=== PATIENT | female | born 1955 | race Caucasian/White ===

== ENCOUNTER 2017-03-04 01:59 | Inpatient (IN) | payer BC ==
[2017-03-04] VITALS (15 sets, daily range): BP systolic 130–205; BP diastolic 77–126
[~2017-03-04] VITALS: Ht 160 cm; Wt 89.9 kg
[~2017-03-04 01:59] MED LIST: CARV3.122 PO; CLON0.1T PO; LOSA25TA4 PO; NITR1PAT3 TD; NITR2.5C3 PO; OMEP1PAC7 PO
[2017-03-04 02:12] LABS: BASO # 0.1 x10^3/uL (0.0-0.2); BASO % 1 % (0-3); EOS % 2 % (0-3); HEMATOCRIT 40.7 % (36.0-47.0); HEMOGLOBIN 13.5 g/dL (12.0-15.5); LYMPH # 2.1 x10^3/uL (1.0-4.8); LYMPH % 17 % (24-48); MEAN CORPUSCULAR HEMOGLOBIN 29 pg (25-35); MEAN CORPUSCULAR HGB CONC 33 g/dL (31-37); MEAN CORPUSCULAR VOLUME 89 fL (79-100); MONO % 6 % (0-9); NEUT % 74 % (31-73); PLATELET COUNT 218 x10^3/uL (140-400); RED BLOOD COUNT 4.58 x10^6/uL (3.50-5.40); RED CELL DISTRIBUTION WIDTH 14.3 % (11.5-14.5); WHITE BLOOD COUNT 12.1 x10^3/uL (4.0-11.0)
[2017-03-04 02:33] LABS: CALCIUM 9.2 mg/dL (8.5-10.1); CREATININE 1.3 mg/dL (0.6-1.0); GFR 41.8; POTASSIUM 3.9 mmol/L (3.5-5.1)
[2017-03-04] MEDS ORDERED: IOHEXOL 300 MG/ML 75 ML VIAL IV ONE (02:45)
[2017-03-04] MEDS ORDERED: FUROSEMIDE 40 MG/4 ML VIAL. IVP ONE (02:45)
[2017-03-04] MEDS ORDERED: NITROGLYCERIN PREMIX 250 ML IV ONE (02:45)
[2017-03-04] MEDS ORDERED: CONTRAST GIVEN MC PRN (02:45)
[2017-03-04] MEDS ORDERED: ONDANSETRON PF 4 MG/2 ML VIAL. IV PRN (03:00)
--- NOTE | 2017-03-04 04:11 | PHYS DOC ---
Past Medical History Past Medical History: Bronchitis, CHF, Hypertension, Pneumonia Past Surgical History: Cholecystectomy Alcohol Use: None Drug Use: None Adult General Chief Complaint Chief Complaint: SHORTNESS OF BREATH HPI HPI 61-year-old female who has had worsening shortness breath for the last several days and orthopnea tonight while trying to lie flat. Patient also states she's had significant lower extremity swelling that has worsened over the last 2 days. Patient does have history of heart failure. She does states she takes diuretic. She states she has mild chest discomfort as well. Upon arrival, her room air saturation was in the low 90s and she was placed on supplementary oxygen. She normally does not require supplemental oxygen. She is afebrile and nontoxic in appearance. Review of Systems Review of Systems Constitutional: Denies fever or chills [] Eyes: Denies change in visual acuity, redness, or eye pain [] HENT: Denies nasal congestion or sore throat [] Respiratory: Denies cough, has shortness of breath [] Cardiovascular: No additional information not addressed in HPI [] GI: Denies abdominal pain, nausea, vomiting, bloody stools or diarrhea [] : Denies dysuria or hematuria [] Musculoskeletal: Denies back pain or joint pain [] Integument: Denies rash or skin lesions [] Neurologic: Denies headache, focal weakness or sensory changes [] Endocrine: Denies polyuria or polydipsia [] Current Medications Current Medications Current Medications Medications (Trade) Dose Ordered Sig/Radha Start Time Stop Time Status Last Admin Dose Admin Furosemide (Lasix) 40 mg 1X ONCE 03/04/17 02:45 03/04/17 02:46 DC 03/04/17 02:48 40 MG Info (Do NOT chart on this entry -- for MONITORING) 1 each PRN DAILY PRN 03/04/17 02:45 03/06/17 02:44 Iohexol (Omnipaque 300 Mg/ml) 75 ml 1X ONCE 03/04/17 02:45 03/04/17 02:46 DC Nitroglycerin/ Dextrose 250 ml @ 0 mls/hr 1X ONCE 03/04/17 02:45 03/04/17 02:46 DC 03/04/17 02:48 1.5 MLS/HR Allergies Allergies Allergies Coded Allergies Type Severity Reaction Last Updated Verified lisinopril Allergy Mild 08/23/16 Yes Physical Exam Physical Exam Constitutional: Well developed, well nourished, no acute distress, non-toxic appearance. [] HENT: Normocephalic, atraumatic, bilateral external ears normal, oropharynx moist, no oral exudates, nose normal. [] Eyes: PERRLA, EOMI, conjunctiva normal, no discharge. [] Neck: Normal range of motion, no tenderness, supple, no stridor. [] Cardiovascular:Heart rate tachycardic with regular rhythm, no murmur [] Lungs & Thorax: Bilateral breath sounds diminished to auscultation bilaterally [] Abdomen: Bowel sounds normal, soft, no tenderness, no masses, no pulsatile masses. [] Skin: Warm, dry, no erythema, no rash. [] Back: No tenderness, no CVA tenderness. [] Extremities: No tenderness, no cyanosis, no clubbing, ROM intact, no edema. [] Neurologic: Alert and oriented X 3, normal motor function, normal sensory function, no focal deficits noted. [] Psychologic: Affect normal, judgement normal, mood normal. [] Current Patient Data Vital Signs Vital Signs Date Time Temp Pulse Resp B/P (MAP) Pulse Ox O2 Delivery O2 Flow Rate FiO2 03/04/17 02:27 114 194/121 (145) 97 Nasal Cannula 3.0 03/04/17 02:04 100.2 30 100.2 Lab Values Laboratory Tests Test 03/04/17 02:04 White Blood Count 12.1 x10^3/uL (4.0-11.0) H Red Blood Count 4.58 x10^6/uL (3.50-5.40) Hemoglobin 13.5 g/dL (12.0-15.5) Hematocrit 40.7 % (36.0-47.0) Mean Corpuscular Volume 89 fL (79-100) Mean Corpuscular Hemoglobin 29 pg (25-35) Mean Corpuscular Hemoglobin Concent 33 g/dL (31-37) Red Cell Distribution Width 14.3 % (11.5-14.5) Platelet Count 218 x10^3/uL (140-400) Neutrophils (%) (Auto) 74 % (31-73) H Lymphocytes (%) (Auto) 17 % (24-48) L Monocytes (%) (Auto) 6 % (0-9) Eosinophils (%) (Auto) 2 % (0-3) Basophils (%) (Auto) 1 % (0-3) Neutrophils # (Auto) 9.0 x10^3uL (1.8-7.7) H Lymphocytes # (Auto) 2.1 x10^3/uL (1.0-4.8) Monocytes # (Auto) 0.8 x10^3/uL (0.0-1.1) Eosinophils # (Auto) 0.2 x10^3/uL (0.0-0.7) Basophils # (Auto) 0.1 x10^3/uL (0.0-0.2) Sodium Level 142 mmol/L (136-145) Potassium Level 3.9 mmol/L (3.5-5.1) Chloride Level 104 mmol/L (98-107) Carbon Dioxide Level 28 mmol/L (21-32) Anion Gap 10 (6-14) Blood Urea Nitrogen 18 mg/dL (7-20) Creatinine 1.3 mg/dL (0.6-1.0) H Estimated GFR (Cockcroft-Gault) 41.8 Glucose Level 127 mg/dL (70-99) H Calcium Level 9.2 mg/dL (8.5-10.1) Troponin I Quantitative 0.020 ng/mL (0.000-0.055) EX-Pwu-T-Type Natriuretic Peptide 1066 pg/mL (0-124) H Laboratory Tests 03/04/17 02:04 Laboratory Tests 03/04/17 02:04 EKG EKG EKG as interpreted by me shows a sinus tachycardia with a rate of 118 bpm. There is no acute injury pattern. This EKG does not meet STEMI criteria. Intervals are normal. Radiology/Procedures Radiology/Procedures One view of the chest as interpreted by me shows some mild vascular congestion consistent with CHF changes. Course & Med Decision Making Course & Med Decision Making Pertinent Labs and Imaging studies reviewed. (See chart for details) This 61-year-old female has a history and laboratory workup that is consistent with a CHF exacerbation. Her laboratory workup shows an elevated pro BNP of 1066. Her chest film has mild vascular changes consistent with CHF. Her blood pressure was significantly elevated upon arrival and a nitroglycerin drip was initiated. Patient was given a dose of IV furosemide as well. Patient was continuously requiring supplementary oxygen while in the department and will be admitted for likely CHF exacerbation. I will discuss the case with the hospitalist, Dr. Lew, about the need for admission. Cardiology consult was placed. Repeat troponins were also ordered for the floor. Dragon Disclaimer Dragon Disclaimer This electronic medical record was generated, in whole or in part, using a voice recognition dictation system. Departure Departure Impression: Primary Impression: CHF exacerbation Additional Impression: Dyspnea Disposition: ADMITTED INPATIENT Admitting Physician: Samaria Lew Condition: STABLE Referrals: MADAN BAXTER MD (PCP) Problem Qualifiers ERNIE ELIZABETH DO Mar 04, 2017 04:11
[2017-03-04] MEDS ORDERED: NITROGLYCERIN PREMIX 250 ML IV PRN (04:15)
--- NOTE | 2017-03-04 04:16 | ACF ---
Admission Forms Criteria HEART FAILURE: COMMON COMPLICATIONS Clinical Indications for Inpatient Care (Place 'X' for any and all applicable criteria): Ongoing inpatient care may be indicated for heart failure with ANY ONE of the following (1)(2)(3)(4)(5): [ ]I. Ongoing need for care for primary condition requiring frequent therapy adjustments because of changes in cardiac function (eg, drug dosage changes for drugs that are renally metabolized) [ ]II. New-onset heart failure [ ]III. Heart failure with decreased urine output not responsive to attempts to optimize volume status [ ]IV. Acute cardiac ischemia causing or associated with failure [X ]V. Complications of heart failure, including ANY ONE of the following: [ ]a) Pericardial effusion [ ]b) Symptomatic pleural effusion [ ]c) O2 saturation <90% or PO2 < 60 mm Hg (8.0 kPa) on room air or require baseline supplemental O2 [ ]d) Tachypnea [X ]e) Dyspnea [ ]f) Syncope [ ]g) Change in mental status [ ]h) Acute renal insufficiency that is severe (reduction of more than 50% in estimated glomerular filtration rate from baseline) or progressive reduction of more than 25% in estimated glomerular filtration rate from baseline, with creatinine continuing to rise) [ ]i) Hemodynamic instability [ ]j) Anasarca [ ]k) Clinically significant metabolic abnormalities due to heart failure (eg, new-onset metabolic acidosis) Extended stay beyond goal length of stay for primary condition may be needed until ALL of the following are present(1)(3): [ ]a) Stable and effective diuretic regimen established (or patient on stable dialysis regimen if in chronic renal failure) [ ]b) Breathing comfortably at rest [ ]c) Saturation of arterial oxygen greater than 90% or at acceptable baseline [ ]d) Pulmonary edema absent or improved [ ]e) Hemodynamic stability [ ]f) Volume status acceptable on oral medication [ ]g) Peripheral or sacral edema absent or improved [ ]h) Renal function stable and manageable at a lower level of care [ ]i) Complications (eg, pleural effusion) resolved or manageable at a lower level of care [ ]j) Patient or caregiver has received written discharge instructions or educational material addressing activity level, diet, discharge medications, follow-up appointment, weight monitoring, and what to do if symptoms worsen The original [facility] content created by [employer] has been revised. The portions of the content which have been revised are identified through the use of italic text or in bold, and [facility] has neither reviewed nor approved the modified material.All other unmodified content is copyright [facility]. Please see references footnoted in the original [facility] edition 2016 Admission Criteria Met?: Yes ADAMA FENG Mar 04, 2017 04:16
[2017-03-04] MEDS ORDERED: CARV25TA2 PO (05:05)
[2017-03-04] MEDS ORDERED: LOSA100T6 PO (05:05)
[2017-03-04] MEDS ORDERED: BUTA1CAP29 PO (05:08)
[2017-03-04] MEDS ORDERED: FURO40TA4 PO (05:08)
[2017-03-04] MEDS ORDERED: NITR0.4T6 SL (05:08)
[2017-03-04] MEDS ORDERED: SIMV20TA3 PO (05:08)
[2017-03-04] MEDS ORDERED: AMLO10TA4 PO (05:08)
[2017-03-04] MEDS: ACETAMINOPHEN 325 MG TABLET. PO PRN ×2 (07:34→21:01)
--- NOTE | 2017-03-04 07:35 | RAD ---
Indication: Chest pain. Time of exam 0222 hours. Correlation is made with prior exam from 02/18/2006. FINDINGS: The heart size is normal. The lungs are clear. No pleural effusion or pneumothorax is identified. The pulmonary vascularity is normal. IMPRESSION: No acute abnormality detected.
[2017-03-04] MEDS ORDERED: NITROGLYCERIN SUBLINGUAL 0.4 MG BOTTLE OF 25. SL PRN (11:15)
[2017-03-04] MEDS: ONDANSETRON PF 4 MG/2 ML VIAL. IV PRN ×3 (11:25→22:45)
[2017-03-04] MEDS: CARVEDILOL 12.5 MG TABLET. PO SCH ×2 (11:26→17:43)
[2017-03-04] MEDS: FUROSEMIDE 40 MG TABLET. PO SCH (11:26)
[2017-03-04] MEDS: amLODIPine BESYLATE 10 MG TABLET PO SCH (11:26)
[2017-03-04] MEDS: BUTALB/APAP/CAFEIN 50/325/40MG TABLET. PO PRN (11:27)
[2017-03-04] MEDS: LOSARTAN POTASSIUM 50 MG TABLET. PO SCH (11:27)
[2017-03-04] MEDS ORDERED: ACETAMINOPHEN/CODEINE 300/30MG TABLET. PO PRN (12:00)
[2017-03-04] MEDS ORDERED: MORPHINE SULFATE 2 MG/ML DISP.SYRIN. IV PRN (12:00)
[2017-03-04] MEDS ORDERED: LABETALOL 20 MG/4 ML DISP.SYRIN. IVP PRN (12:00)
--- NOTE | 2017-03-04 12:08 | PDOC1 ---
History and Physical Date of Admission Date of Admission DATE: 03/04/17 TIME: 12:01 Identification/Chief Complaint Chief Complaint soa, leg swelling Problems: Source Source: Caregiver, Chart review, Patient History of Present Illness History of Present Illness 61 y.o obese AA female, hx CHF x 6 yrs, cards is Dr. Amanda, admitted overnight bec of SOA, leg swelling, she thinks she is accumulating fluid and gained some weight, She claims compliance to her home meds including lasix at home, claims watches salt intake, Notes some chest heaviness actually now, not pain, no radiation, at rest, no identifiable alleviating or precipitating factor. SHe is fanning herself, speaks in a low voice, nauseus with bucket at bedside, having ehadache bec has been on nitro gtt started by ER for CHF/flash pulm edema, CXR actually is read as neg, BNP elevated 1066. Crea 1.3 TYlenol did not help headache, BP still on high side despite nitro gtt Past Medical History Cardiovascular: CHF, HTN, Hyperlipidemia CENTRAL NERVOUS SYSTEM: Migraine Past Surgical History Past Surgical History: Cholecystectomy Family History Family History: Heart Disease, High Cholestrol, Hypertension Social History Smoke: No ALCOHOL: none Drugs: None Current Medications Current Medications Current Medications Furosemide (Lasix) 40 mg 1X ONCE IVP Last administered on 03/04/17 02:48; Start 03/04/17 at 02:45; Stop 03/04/17 at 02:46; Status DC Nitroglycerin/ Dextrose 250 ml @ 0 mls/hr 1X ONCE IV Last administered on 02:48; Start 03/04/17 at 02:45; Stop 03/04/17 at 02:46; Status DC Iohexol (Omnipaque 300 Mg/ml) 75 ml 1X ONCE IV ; Start 03/04/17 at 02:45; Stop 03/04/17 at 02:46; Status DC Info (Do NOT chart on this entry -- for MONITORING) 1 each PRN DAILY PRN MC SEE COMMENTS; Start 03/04/17 at 02:45; Stop 03/06/17 at 02:44 Ondansetron HCl (Zofran) 4 mg PRN Q8HRS PRN IV NAUSEA/VOMITING Last administered on 03/04/17 04:17; Start 03/04/17 at 03:00; Stop 03/04/17 at 11:09; Status DC Acetaminophen (Tylenol) 650 mg PRN Q4HRS PRN PO FEVER Last administered on 07:34; Start 03/04/17 at 03:00; Stop 03/05/17 at 02:59 Nitroglycerin/ Dextrose 250 ml @ 0 mls/hr CONT PRN IV SEE I/O RECORD; Start 03/04/17 at 04:15 Ondansetron HCl (Zofran) 4 mg PRN Q6HRS PRN IV NAUSEA/VOMITING Last administered on 03/04/17 11:25; Start 03/04/17 at 11:08; Stop 03/05/17 at 11:07 Amlodipine Besylate (Norvasc) 10 mg DAILY PO Last administered on 03/04/17 11: 26; Start 03/04/17 at 12:00 Furosemide (Lasix) 40 mg DAILY PO Last administered on 03/04/17 11:26; Start at 12:00 Nitroglycerin (Nitrostat) 0.4 mg PRN Q5MIN PRN SL CHEST PAIN; Start 03/04/17 at 11:15 Simvastatin (Zocor) 20 mg QHS PO ; Start 03/04/17 at 21:00 Acetaminophen/ Butalbital/ Caffeine (Fioricet) 1 tab PRN DAILY PRN PO MIGRAINE HEADACHE Last administered on 03/04/17 11:27; Start 03/04/17 at 11:15 Carvedilol (Coreg) 25 mg BIDWMEALS PO Last administered on 03/04/17 11:26; Start 03/04/17 at 12:00 Losartan Potassium (Cozaar) 100 mg DAILY PO Last administered on 03/04/17 11:27 ; Start 03/04/17 at 12:00 Active Scripts Active Reported NITROGLYCERIN SubLingual (Nitroglycerin) 0.4 Mg Tab.subl 0.4 Mg SL PRN Q5MIN PRN Norvasc (Amlodipine Besylate) 10 Mg Tablet 10 Mg PO DAILY Simvastatin 20 Mg Tablet 1 Tab PO QHS Fioricet 50-300-40 Mg Capsule (Butalb/Acetaminophen/Caffeine) 1 Each Capsule 1 Each PO DAILY PRN Furosemide 40 Mg Tablet 1 Tab PO DAILY Losartan Potassium 100 Mg Tablet 100 Mg PO DAILY Carvedilol 25 Mg Tablet 1 Tab PO DAILY Allergies Allergies: Coded Allergies: lisinopril (Verified Allergy, Mild, 08/23/16) ROS General: No: Chills, Night Sweats, Fatigue, Malaise, Appetite, Other PSYCHOLOGICAL ROS: No: Anxiety, Behavioral Disorder, Concentration difficultie , Decreased libido, Depression, Disorientation, Hallucinations, Hostility, Irritablity, Memory difficulties, Mood Swings, Obsessive thoughts, Physical abuse, Sexual abuse, Sleep disturbances, Suicidal ideation, Other Eyes: No Blurry vision, No Decreased vision, No Double vision, No Dry eyes, No Excessive tearing, No Eye Pain, No Itchy Eyes, No Loss of vision, No Photophobia , No Scotomata, No Uses contacts, No Uses glasses, No Other HEENT: No: Heacaches, Visual Changes, Hearing change, Nasal congestion, Nasal discharge, Oral lesions, Sinus pain, Sore Throat, Epistaxis, Sneezing, Snoring, Tinnitus, Vertigo, Vocal changes, Other ALLERGY AND IMMUNOLOGY: No: Hives, Insect Bite Sensitivity, Itchy/Watery Eyes, Nasal Congestion, Post Nasal Drip, Seasonal Allergies, Other ENDOCRINE: No: Breast Changes, Galactorrhea, Hair Pattern Changes, Hot Flashes , Malaise/lethargy, Mood Swings, Palpitations, Polydipsia/polyuria, Skin Changes , Temperature Intolerance, Unexpected Weight Changes, Other Breast: No New/Changing Breast Lumps, No Nipple changes, No Nipple discharge, No Other Respiratory: YES: Shortness of breath, SOB with excertion Cardiovascular: yes Chest Pain Gastrointestinal: Yes Nausea, Yes Abdominal Pain Genitourinary: No Dysuria, No Frequency, No Incontinence, No Hematuria, No Retention, No Discharge, No Urgency, No Pain, No Flank Pain, No Other, No , No , No , No , No , No , No Neurological: Yes Headaches Skin: No Dry Skin, No Eczema, No Hair Changes, No Lumps, No Mole Changes, No Mottling, No Nail Changes, No Pruritus, No Rash, No Skin Lesion Changes, No Other, No Acne Physical Exam General: Alert, Oriented X3, Cooperative, No acute distress, Other (looks uncomfortable from headachem, dry heaving) HEENT: Atraumatic, PERRLA, EOMI, Mucous membr. moist/pink Lungs: Clear to auscultation Heart: S1S2, RRR Cardiovascular: S1, S2 Breasts: No suspicious masses Abdomen: Normal bowel sounds, Soft, No tenderness, No hepatosplenomegaly, No masses Rectal Exam: not examined PELVIC: Nml ext genitalia Extremities: No clubbing, No cyanosis, No edema, Normal pulses, No tenderness/ swelling Skin: No rashes, No breakdown, No significant lesion Neuro: Normal gait, Normal speech, Strength at 5/5 X4 ext, Normal tone, Sensation intact, Cranial nerves 3-12 NL, Reflexes 2+ Psych/Mental Status: Mental status NL, Mood NL Vitals Vitals Vital Signs Date Time Temp Pulse Resp B/P (MAP) Pulse Ox O2 Delivery O2 Flow Rate FiO2 03/04/17 11:27 90 165/101 03/04/17 10:54 98.6 20 98 Nasal Cannula 2.0 98.6 Labs Labs Laboratory Tests Test 03/04/17 02:04 03/04/17 08:50 White Blood Count 12.1 x10^3/uL (4.0-11.0) Red Blood Count 4.58 x10^6/uL (3.50-5.40) Hemoglobin 13.5 g/dL (12.0-15.5) Hematocrit 40.7 % (36.0-47.0) Mean Corpuscular Volume 89 fL (79-100) Mean Corpuscular Hemoglobin 29 pg (25-35) Mean Corpuscular Hemoglobin Concent 33 g/dL (31-37) Red Cell Distribution Width 14.3 % (11.5-14.5) Platelet Count 218 x10^3/uL (140-400) Neutrophils (%) (Auto) 74 % (31-73) Lymphocytes (%) (Auto) 17 % (24-48) Monocytes (%) (Auto) 6 % (0-9) Eosinophils (%) (Auto) 2 % (0-3) Basophils (%) (Auto) 1 % (0-3) Neutrophils # (Auto) 9.0 x10^3uL (1.8-7.7) Lymphocytes # (Auto) 2.1 x10^3/uL (1.0-4.8) Monocytes # (Auto) 0.8 x10^3/uL (0.0-1.1) Eosinophils # (Auto) 0.2 x10^3/uL (0.0-0.7) Basophils # (Auto) 0.1 x10^3/uL (0.0-0.2) Sodium Level 142 mmol/L (136-145) Potassium Level 3.9 mmol/L (3.5-5.1) Chloride Level 104 mmol/L (98-107) Carbon Dioxide Level 28 mmol/L (21-32) Anion Gap 10 (6-14) Blood Urea Nitrogen 18 mg/dL (7-20) Creatinine 1.3 mg/dL (0.6-1.0) Estimated GFR (Cockcroft-Gault) 41.8 Glucose Level 127 mg/dL (70-99) Calcium Level 9.2 mg/dL (8.5-10.1) Troponin I Quantitative 0.020 ng/mL (0.000-0.055) 0.044 ng/mL (0.000-0.055) VD-Asz-I-Type Natriuretic Peptide 1066 pg/mL (0-124) Laboratory Tests Test 03/04/17 02:04 03/04/17 08:50 White Blood Count 12.1 x10^3/uL (4.0-11.0) Red Blood Count 4.58 x10^6/uL (3.50-5.40) Hemoglobin 13.5 g/dL (12.0-15.5) Hematocrit 40.7 % (36.0-47.0) Mean Corpuscular Volume 89 fL (79-100) Mean Corpuscular Hemoglobin 29 pg (25-35) Mean Corpuscular Hemoglobin Concent 33 g/dL (31-37) Red Cell Distribution Width 14.3 % (11.5-14.5) Platelet Count 218 x10^3/uL (140-400) Neutrophils (%) (Auto) 74 % (31-73) Lymphocytes (%) (Auto) 17 % (24-48) Monocytes (%) (Auto) 6 % (0-9) Eosinophils (%) (Auto) 2 % (0-3) Basophils (%) (Auto) 1 % (0-3) Neutrophils # (Auto) 9.0 x10^3uL (1.8-7.7) Lymphocytes # (Auto) 2.1 x10^3/uL (1.0-4.8) Monocytes # (Auto) 0.8 x10^3/uL (0.0-1.1) Eosinophils # (Auto) 0.2 x10^3/uL (0.0-0.7) Basophils # (Auto) 0.1 x10^3/uL (0.0-0.2) Sodium Level 142 mmol/L (136-145) Potassium Level 3.9 mmol/L (3.5-5.1) Chloride Level 104 mmol/L (98-107) Carbon Dioxide Level 28 mmol/L (21-32) Anion Gap 10 (6-14) Blood Urea Nitrogen 18 mg/dL (7-20) Creatinine 1.3 mg/dL (0.6-1.0) Estimated GFR (Cockcroft-Gault) 41.8 Glucose Level 127 mg/dL (70-99) Calcium Level 9.2 mg/dL (8.5-10.1) Troponin I Quantitative 0.020 ng/mL (0.000-0.055) 0.044 ng/mL (0.000-0.055) HV-Rcg-X-Type Natriuretic Peptide 1066 pg/mL (0-124) VTE Prophylaxis Ordered VTE Prophylaxis Devices: Yes VTE Pharmacological Prophylaxi: Yes Assessment/Plan Assessment/Plan 1. CHF (unknown kind) on admit, HTN urgency POA started on nitro gtt 2. Headaches from nitro gtt and hTN urgency 3. HTN uncontrolled, accelerated 4. Obesity 5. Hx migraines 6. Dyslipidmeia 7. MIld PCM 8. reactive leukocytosis 9,.IZZY 10. CHest heaviness] PLAN: Admit CVC , 2 MN CXR is not impressive, legs not that swollen, no JVD, hopefully able tog et off nitro gtt soon CArds consulted I am concerned for chest heaviness CYcle CE LAbetolol rpn IVP for HTN - still on high side TYlenol # 3 MIgarine headache home med resumed Hold nephrotoxic agents and NSAIDs (crea 1,4) PT/OT when feeling better Dw RN and pt and at bedside DVT prophy CARdiac diet YOEL CHAVEZ MD Mar 04, 2017 12:08
[2017-03-04] MEDS: ENOXAPARIN 40 MG/0.4 ML SYRINGE. SQ SCH (12:27)
--- NOTE | 2017-03-04 12:33 | EKG ---
[facility] [address] [place] [address] Test Date: 2017-03-04 Test Time: 02:01:15 Pat Name: ANUEL MO Department: Room: 210 1 Gender: F [employer] Registrar: : [id number] Requested By: ERNIE ELIZABETH Order Number: [id number] Reading MD: Jason Vincent Measurements Intervals Moyers Rate: 118 P: 52 UT: 92 QRS: 12 QRSD: 108 T: 13 QT: 324 QTc: 456 Interpretive Statements SINUS TACHYCARDIA QRS(T) CONTOUR ABNORMALITY CANNOT RULE OUT ANTEROLATERAL MYOCARDIAL DAMAGE RI6.01 Unconfirmed report No previous ECG available for comparison Electronically Signed On 03-08-2017 9:36:59 CDT by Jason Vincent
--- NOTE | 2017-03-04 13:08 | PDOC ---
Provider Note Provider Note I had seen this patient in the office in August 2016. MPI wasn't normal at that time. She now comes in with symptoms suggestive of flash pulmonary edema. She is asymptomatic at the present time. Will complete consultation later this evening after reviewing charts in the office. Thank you for asking me to see her. KENNETH POSEY MD Mar 04, 2017 13:08
[2017-03-04] MEDS: hydrALAZINE 25 MG TABLET PO SCH (17:43)
[2017-03-04] MEDS: SIMVASTATIN 20 MG TABLET PO SCH (21:00)
[2017-03-05] VITALS (10 sets, daily range): BP systolic 119–163; BP diastolic 53–95
[2017-03-05] MEDS: hydrALAZINE 25 MG TABLET PO SCH (06:17)
[2017-03-05] MEDS: CARVEDILOL 12.5 MG TABLET. PO SCH ×2 (07:39→17:29)
[2017-03-05] MEDS: LOSARTAN POTASSIUM 50 MG TABLET. PO SCH (07:39)
[2017-03-05] MEDS: FUROSEMIDE 40 MG TABLET. PO SCH (07:40)
[2017-03-05] MEDS: amLODIPine BESYLATE 10 MG TABLET PO SCH (07:40)
--- NOTE | 2017-03-05 10:45 | RAD ---
Indication: Bilateral lower extremity edema. Grayscale, color-flow and duplex Doppler evaluation of bilateral lower extremity deep venous systems was performed. FINDINGS: There is no evidence of right or left lower extremity DVT. Both lower extremity deep venous systems showed normal compressibility with normal response to augmentation and Valsalva. No fluid collection or mass is detected. IMPRESSION: No evidence of right or left lower extremity DVT.
[2017-03-05] MEDS: BUTALB/APAP/CAFEIN 50/325/40MG TABLET. PO PRN (11:03)
--- NOTE | 2017-03-05 11:12 | CARD ---
APPROVED REPORT EXAM: Two-dimensional and M-mode echocardiogram with Doppler and color Doppler. Other Information Quality : GoodHR: 94bpm Rhythm : NSR INDICATION SOB RISK FACTORS Obesity 2D DIMENSIONS RVDd3.0 (2.9-3.5cm)Left Atrium(2D)5.1 (1.6-4.0cm) IVSd1.0 (0.7-1.1cm)Aortic Root(2D)2.5 (2.0-3.7cm) LVDd5.8 (3.9-5.9cm)LVOT Diameter2.2 (1.8-2.4cm) PWd1.0 (0.7-1.1cm)LVDs4.2 (2.5-4.0cm) FS (%) 28.1 %SV88.5 ml LVEF(%)53.7 (>50%) Aortic Valve AoV Peak Tate.124.9cm/sAoV VTI22.4cm AO Peak GR.6.2mmHgLVOT Peak Tate.101.7cm/s AO Mean GR.4mmHgAVA (VMAX)3.00cm2 Mitral Valve MV E Hhxubwpg13.3cm/sMV E Peak Gr.6mmHg MV DECEL [id number] A Tpdqgxpe945.8cm/s MV E Mean Gr.3mmHgE/A Ratio0.8 MV A Yvtyoyqo24am Pulmonary Valve PV Peak Lndaqdtm437.8cm/s Pulmonary Vein S1 Haczdlev71.9cm/sD2 Xrohxerg22.4cm/s PVa [id number] LEFT VENTRICLE The Left Ventricle is mildly dilated. There is normal left ventricular wall thickness. The left ventr icular systolic function is normal. The Ejection Fraction is 55-60%. There is normal LV segmental wal l motion. Transmitral Doppler flow pattern is Grade I-abnormal relaxation pattern. RIGHT VENTRICLE The right ventricle is normal size. There is normal right ventricular wall thickness. The right ventr icular systolic function is normal. ATRIA The left atrium is mildly dilated. The right atrium size is normal. The interatrial septum is intact with no evidence for an atrial septal defect or patent foramen ovale as noted on 2-D or Doppler imagi ng. AORTIC VALVE The aortic valve is trileaflet. Doppler and Color Flow revealed no significant aortic regurgitation. There is no significant aortic valvular stenosis. MITRAL VALVE The mitral valve leaflets are thickened. There is no mitral valve stenosis. Doppler and Color Flow re vealed mild mitral regurgitation. TRICUSPID VALVE Doppler and Color Flow revealed no tricuspid valve regurgitation noted. Unable to determine pulmonary artery pressure at exam time. PULMONIC VALVE Doppler and Color Flow revealed trace pulmonic valvular regurgitation. There is no pulmonic valvular stenosis. GREAT VESSELS The aortic root is normal in size. The ascending aorta is mildly dilated. The pulmonary artery is nor mal. The IVC is normal in size and collapses >50% with inspiration. PERICARDIAL EFFUSION There is no evidence of significant pericardial effusion. Critical Notification Critical Value: No <Conclusion> The Left Ventricle is mildly dilated. There is normal left ventricular wall thickness. The left ventricular systolic function is normal. The Ejection Fraction is 55-60% There is a Grade I diastolic dysfunction There is no evidence of significant pericardial effusion. There is no mitral stenosis and a mild mitral regurgitation. The left atrium is enlarged to 5.1 cms. The aortic valve is tricuspid. There is no aortic stenosis or regurgitation The right ventricle is of a normal size with normal systolic function There is no sufficient TR to be able to determine the RVSP The pulmonic valve is normal.
[2017-03-05 12:13] LABS: BASO % 0 % (0-3); EOS % 0 % (0-3); HEMATOCRIT 37.9 % (36.0-47.0); HEMOGLOBIN 12.5 g/dL (12.0-15.5); LYMPH # 1.2 x10^3/uL (1.0-4.8); LYMPH % 13 % (24-48); MEAN CORPUSCULAR HEMOGLOBIN 29 pg (25-35); MEAN CORPUSCULAR HGB CONC 33 g/dL (31-37); MEAN CORPUSCULAR VOLUME 89 fL (79-100); MONO % 9 % (0-9); NEUT % 78 % (31-73); PLATELET COUNT 187 x10^3/uL (140-400); RED BLOOD COUNT 4.25 x10^6/uL (3.50-5.40); RED CELL DISTRIBUTION WIDTH 14.4 % (11.5-14.5)
[2017-03-05] MEDS: ENOXAPARIN 40 MG/0.4 ML SYRINGE. SQ SCH (12:17)
--- NOTE | 2017-03-05 12:23 | PDOC ---
PROGRESS NOTES Chief Complaint Chief Complaint 1. CHF (unknown kind) on admit, HTN urgency POA started on nitro gtt 2. Headaches from nitro gtt and hTN urgency 3. HTN uncontrolled, accelerated 4. Obesity 5. Hx migraines 6. Dyslipidmeia 7. MIld PCM 8. reactive leukocytosis 9,.IZZY 10. CHest heaviness History of Present Illness History of Present Illness off nitro gtt just today [facility] has adjusted some bP meds, BP better SOme 5./10 headache, better Known migraine PLAN: PT/OT Follow cards recs REcheck CBC BMP, WBC was 12 - no real reason Dw RN Vitals Vitals Vital Signs Date Time Temp Pulse Resp B/P (MAP) Pulse Ox O2 Delivery O2 Flow Rate FiO2 03/05/17 11:12 98.7 90 18 154/80 (104) 100 Nasal Cannula 2.0 98.7 Physical Exam General: Alert, Oriented X3, Cooperative, No acute distress, Other (looks uncomfortable from headachem, dry heaving) Heart: Regular rate, Normal S1, Normal S2 Lungs: Clear Abdomen: Normal bowel sounds, Soft, No tenderness, No hepatosplenomegaly, No masses Extremities: No clubbing, No cyanosis, No edema, Normal pulses, No tenderness/ swelling Skin: No rashes, No breakdown, No significant lesion Labs LABS Laboratory Tests Test 03/04/17 14:45 03/05/17 11:24 Troponin I Quantitative 0.037 ng/mL (0.000-0.055) White Blood Count 10.0 x10^3/uL (4.0-11.0) Red Blood Count 4.25 x10^6/uL (3.50-5.40) Hemoglobin 12.5 g/dL (12.0-15.5) Hematocrit 37.9 % (36.0-47.0) Mean Corpuscular Volume 89 fL (79-100) Mean Corpuscular Hemoglobin 29 pg (25-35) Mean Corpuscular Hemoglobin Concent 33 g/dL (31-37) Red Cell Distribution Width 14.4 % (11.5-14.5) Platelet Count 187 x10^3/uL (140-400) Neutrophils (%) (Auto) 78 % (31-73) Lymphocytes (%) (Auto) 13 % (24-48) Monocytes (%) (Auto) 9 % (0-9) Eosinophils (%) (Auto) 0 % (0-3) Basophils (%) (Auto) 0 % (0-3) Neutrophils # (Auto) 7.7 x10^3uL (1.8-7.7) Lymphocytes # (Auto) 1.2 x10^3/uL (1.0-4.8) Monocytes # (Auto) 0.9 x10^3/uL (0.0-1.1) Eosinophils # (Auto) 0.0 x10^3/uL (0.0-0.7) Basophils # (Auto) 0.0 x10^3/uL (0.0-0.2) Review of Systems Review of Systems mild headaches, no soa, CP, abd pain, n,.v.d Comment Review of Relevant I have reviewed the following items wilbert (where applicable) has been applied. Labs Laboratory Tests Test 03/04/17 02:04 03/04/17 08:50 03/04/17 14:45 03/05/17 11:24 White Blood Count 12.1 x10^3/uL (4.0-11.0) 10.0 x10^3/uL (4.0-11.0) Red Blood Count 4.58 x10^6/uL (3.50-5.40) 4.25 x10^6/uL (3.50-5.40) Hemoglobin 13.5 g/dL (12.0-15.5) 12.5 g/dL (12.0-15.5) Hematocrit 40.7 % (36.0-47.0) 37.9 % (36.0-47.0) Mean Corpuscular Volume 89 fL (79-100) 89 fL (79-100) Mean Corpuscular Hemoglobin 29 pg (25-35) 29 pg (25-35) Mean Corpuscular Hemoglobin Concent 33 g/dL (31-37) 33 g/dL (31-37) Red Cell Distribution Width 14.3 % (11.5-14.5) 14.4 % (11.5-14.5) Platelet Count 218 x10^3/uL (140-400) 187 x10^3/uL (140-400) Neutrophils (%) (Auto) 74 % (31-73) 78 % (31-73) Lymphocytes (%) (Auto) 17 % (24-48) 13 % (24-48) Monocytes (%) (Auto) 6 % (0-9) 9 % (0-9) Eosinophils (%) (Auto) 2 % (0-3) 0 % (0-3) Basophils (%) (Auto) 1 % (0-3) 0 % (0-3) Neutrophils # (Auto) 9.0 x10^3uL (1.8-7.7) 7.7 x10^3uL (1.8-7.7) Lymphocytes # (Auto) 2.1 x10^3/uL (1.0-4.8) 1.2 x10^3/uL (1.0-4.8) Monocytes # (Auto) 0.8 x10^3/uL (0.0-1.1) 0.9 x10^3/uL (0.0-1.1) Eosinophils # (Auto) 0.2 x10^3/uL (0.0-0.7) 0.0 x10^3/uL (0.0-0.7) Basophils # (Auto) 0.1 x10^3/uL (0.0-0.2) 0.0 x10^3/uL (0.0-0.2) Sodium Level 142 mmol/L (136-145) Potassium Level 3.9 mmol/L (3.5-5.1) Chloride Level 104 mmol/L (98-107) Carbon Dioxide Level 28 mmol/L (21-32) Anion Gap 10 (6-14) Blood Urea Nitrogen 18 mg/dL (7-20) Creatinine 1.3 mg/dL (0.6-1.0) Estimated GFR (Cockcroft-Gault) 41.8 Glucose Level 127 mg/dL (70-99) Calcium Level 9.2 mg/dL (8.5-10.1) Troponin I Quantitative 0.020 ng/mL (0.000-0.055) 0.044 ng/mL (0.000-0.055) 0.037 ng/mL (0.000-0.055) OC-Dea-W-Type Natriuretic Peptide 1066 pg/mL (0-124) Laboratory Tests Test 03/04/17 14:45 03/05/17 11:24 Troponin I Quantitative 0.037 ng/mL (0.000-0.055) White Blood Count 10.0 x10^3/uL (4.0-11.0) Red Blood Count 4.25 x10^6/uL (3.50-5.40) Hemoglobin 12.5 g/dL (12.0-15.5) Hematocrit 37.9 % (36.0-47.0) Mean Corpuscular Volume 89 fL (79-100) Mean Corpuscular Hemoglobin 29 pg (25-35) Mean Corpuscular Hemoglobin Concent 33 g/dL (31-37) Red Cell Distribution Width 14.4 % (11.5-14.5) Platelet Count 187 x10^3/uL (140-400) Neutrophils (%) (Auto) 78 % (31-73) Lymphocytes (%) (Auto) 13 % (24-48) Monocytes (%) (Auto) 9 % (0-9) Eosinophils (%) (Auto) 0 % (0-3) Basophils (%) (Auto) 0 % (0-3) Neutrophils # (Auto) 7.7 x10^3uL (1.8-7.7) Lymphocytes # (Auto) 1.2 x10^3/uL (1.0-4.8) Monocytes # (Auto) 0.9 x10^3/uL (0.0-1.1) Eosinophils # (Auto) 0.0 x10^3/uL (0.0-0.7) Basophils # (Auto) 0.0 x10^3/uL (0.0-0.2) Medications Current Medications Furosemide (Lasix) 40 mg 1X ONCE IVP Last administered on 03/04/17 02:48; Start 03/04/17 at 02:45; Stop 03/04/17 at 02:46; Status DC Nitroglycerin/ Dextrose 250 ml @ 0 mls/hr 1X ONCE IV Last administered on 02:48; Start 03/04/17 at 02:45; Stop 03/04/17 at 02:46; Status DC Iohexol (Omnipaque 300 Mg/ml) 75 ml 1X ONCE IV ; Start 03/04/17 at 02:45; Stop 03/04/17 at 02:46; Status DC Info (Do NOT chart on this entry -- for MONITORING) 1 each PRN DAILY PRN MC SEE COMMENTS; Start 03/04/17 at 02:45; Stop 03/06/17 at 02:44 Ondansetron HCl (Zofran) 4 mg PRN Q8HRS PRN IV NAUSEA/VOMITING Last administered on 03/04/17 04:17; Start 03/04/17 at 03:00; Stop 03/04/17 at 11:09; Status DC Acetaminophen (Tylenol) 650 mg PRN Q4HRS PRN PO FEVER Last administered on 21:01; Start 03/04/17 at 03:00; Stop 03/05/17 at 02:59; Status DC Nitroglycerin/ Dextrose 250 ml @ 0 mls/hr CONT PRN IV SEE I/O RECORD; Start 03/04/17 at 04:15 Ondansetron HCl (Zofran) 4 mg PRN Q6HRS PRN IV NAUSEA/VOMITING Last administered on 03/04/17 22:45; Start 03/04/17 at 11:08; Stop 03/05/17 at 11:07; Status DC Amlodipine Besylate (Norvasc) 10 mg DAILY PO Last administered on 03/05/17 07: 40; Start 03/04/17 at 12:00 Furosemide (Lasix) 40 mg DAILY PO Last administered on 03/05/17 07:40; Start at 12:00 Nitroglycerin (Nitrostat) 0.4 mg PRN Q5MIN PRN SL CHEST PAIN; Start 03/04/17 at 11:15 Simvastatin (Zocor) 20 mg QHS PO Last administered on 03/04/17 21:00; Start 03/04/17 at 21:00 Acetaminophen/ Butalbital/ Caffeine (Fioricet) 1 tab PRN DAILY PRN PO MIGRAINE HEADACHE Last administered on 03/05/17 11:03; Start 03/04/17 at 11:15 Carvedilol (Coreg) 25 mg BIDWMEALS PO Last administered on 03/05/17 07:39; Start 03/04/17 at 12:00 Losartan Potassium (Cozaar) 100 mg DAILY PO Last administered on 03/05/17 07:39 ; Start 03/04/17 at 12:00 Labetalol HCl (Normodyne) 10 mg PRN Q2HR PRN IVP HYPERTENSION, SEE COMMENTS; Start 03/04/17 at 12:00 Acetaminophen/ Codeine Phosphate (Tylenol #3) 1 tab PRN Q6HRS PRN PO PAIN; Start 03/04/17 at 12:00 Morphine Sulfate 2 mg PRN Q2HR PRN IV PAIN Last administered on 03/04/17 22:48 ; Start 03/04/17 at 12:00 Enoxaparin Sodium (Lovenox 40mg Syringe) 40 mg Q24H SQ Last administered on 03/05 12:17; Start 03/04/17 at 13:00 Hydralazine HCl (Apresoline) 25 mg [id number] PO Last administered on 03/05/17 06:17 ; Start 03/04/17 at 18:00 Active Scripts Active Reported NITROGLYCERIN SubLingual (Nitroglycerin) 0.4 Mg Tab.subl 0.4 Mg SL PRN Q5MIN PRN Norvasc (Amlodipine Besylate) 10 Mg Tablet 10 Mg PO DAILY Simvastatin 20 Mg Tablet 1 Tab PO QHS Fioricet 50-300-40 Mg Capsule (Butalb/Acetaminophen/Caffeine) 1 Each Capsule 1 Each PO DAILY PRN Furosemide 40 Mg Tablet 1 Tab PO DAILY Losartan Potassium 100 Mg Tablet 100 Mg PO DAILY Carvedilol 25 Mg Tablet 1 Tab PO DAILY Vitals/I & O Vital Sign - Last 24 Hours 03/04/17 03/04/17 03/04/17 03/04/17 15:23 17:43 17:43 19:00 Temp 98.0 98.4 98.0 98.4 Pulse 80 80 80 81 Resp 18 18 B/P (MAP) 152/90 (110) 152/90 152/90 147/81 (103) Pulse Ox 98 96 O2 Delivery Nasal Cannula Nasal Cannula O2 Flow Rate 2.0 2.0 03/04/17 03/04/17 03/04/17 03/04/17 19:45 19:54 20:45 21:45 Pulse 76 76 80 B/P (MAP) 138/77 (97) 140/80 (100) 138/78 (98) O2 Delivery Nasal Cannula O2 Flow Rate 2.0 03/04/17 03/04/17 03/04/17 03/04/17 22:45 22:48 23:00 23:19 Temp 98.0 98.0 Pulse 82 77 Resp 18 B/P (MAP) 140/82 (101) 130/79 (96) Pulse Ox 95 O2 Delivery Nasal Cannula Nasal Cannula Nasal Cannula O2 Flow Rate 2.0 2.0 2.0 03/04/17 03/05/17 03/05/17 03/05/17 23:45 00:45 02:00 03:00 Temp 97.6 97.6 Pulse 72 80 79 81 Resp 18 B/P (MAP) 130/77 (94) 121/53 (75) 119/68 (85) 119/68 (85) Pulse Ox 98 O2 Delivery Nasal Cannula O2 Flow Rate 2.0 03/05/17 03/05/17 03/05/17 03/05/17 03:00 04:00 05:07 06:00 Pulse 70 76 75 82 B/P (MAP) 129/81 (97) 135/79 (97) 144/77 (99) 163/95 (117) 03/05/17 03/05/17 03/05/17 03/05/17 06:17 07:39 07:39 07:40 Pulse 82 93 98 93 B/P (MAP) 163/95 155/86 155/86 155/86 03/05/17 03/05/17 08:11 11:12 Temp 98.7 98.7 Pulse 90 Resp 18 B/P (MAP) 154/80 (104) Pulse Ox 100 O2 Delivery Nasal Cannula Nasal Cannula O2 Flow Rate 2.0 2.0 Intake and Output 03/04/17 03/04/17 03/05/17 15:00 23:00 07:00 Intake Total 200 ml 229.5 ml Output Total 400 ml Balance -200 ml 229.5 ml YOEL CHAVEZ MD Mar 05, 2017 12:23
[2017-03-05 12:25] LABS: CALCIUM 8.5 mg/dL (8.5-10.1); CREATININE 1.2 mg/dL (0.6-1.0); GFR 45.8; MAGNESIUM 2.1 mg/dL (1.8-2.4); POTASSIUM 3.6 mmol/L (3.5-5.1)
[2017-03-05 12:31] LABS: CHOLESTEROL/HDL RATIO 2.6
[2017-03-05] MEDS: SIMVASTATIN 20 MG TABLET PO SCH (20:28)
[2017-03-06] VITALS (16 sets, daily range): BP systolic 112–173; BP diastolic 65–92
--- NOTE | 2017-03-06 00:48 | CONS ---
DATE OF CONSULTATION: HISTORY OF PRESENT ILLNESS: This is a 61-year-old black female who evidently saw on 08/2016. I could not locate the chart. She had come in today with chest pain. She was referred by Dr. Engel. A myocardial perfusion imaging study was done at [place] and it was normal. She was reassured. I have not seen her since then. She complained of no shortness of breath. She presented herself to the Emergency Room yesterday morning. She says for the last one week, she has been having shortness of breath with exertion such as climbing up a flight of stairs. Yesterday morning, she was sitting and talking to her boyfriend. She suddenly started to have extreme shortness of breath and ____ she could not catch the air at all. The ambulance was called and she was brought into the Emergency Room. In the Emergency Room, her EKG and cardiac enzymes were negative. A chest x-ray was normal. Her blood pressure on admission was extremely high with the systolic blood pressure being to 35 mmHg. She was given IV Lasix and placed on a nitroglycerin drip. Her home medications were resumed. She was also given hydralazine. The nitroglycerin drip and has since then been discontinued. At present, she has no symptoms of chest pain or shortness of breath. Along with shortness of breath yesterday, she had chest discomfort. She gives history of hypertension. There is no history of diabetes mellitus. She does not smoke. Her lipids are not significantly elevated. MEDICATIONS: At home have been; 1. Amlodipine 10 mg a day. 2. ____. 3. Carvedilol 25 mg once a day. 4. Furosemide 40 mg a day. 5. Losartan 100 mg a day. 6. Simvastatin 20 mg at night. FAMILY HISTORY: Her mother of congestive heart failure. PHYSICAL EXAMINATION: GENERAL: She was in no distress. She was able to give a cogent history. She was oriented. VITAL SIGNS: The heart rate was 70 per minute and regular. The blood pressure is 150/90. LUNGS: Clear. HEART: The heart sounds are normal with no murmur or gallop. ABDOMEN: Soft. EXTREMITIES: There is no edema. IMPRESSION: 1. Flash pulmonary edema, need to rule out coronary artery disease and also need to rule out renal arterial stenosis. 2. Hypertension. This patient did have a normal myocardial perfusion imaging study in 08/2016. However, with these acute symptoms, it would be best to proceed with coronary arteriograms to make sure that was not a false negative test. An echocardiogram was done. LABORATORY DATA: Shows a normal ejection fraction of 55-60%. There is a grade 1 diastolic dysfunction. There is no evidence of significant pericardial effusion. The left atrium is enlarged to 5.1. There is no valvular dysfunction. IMPRESSION: Thus, this patient does not have an echocardiographic recent to have pulmonary edema on severe congestive heart failure. Even though her enzymes are not elevated, it would be best to proceed with coronary arteriograms and this relatively ____ the patient of 61 years. Also, we would be able to check her renal arteries. She was tried to make arrangements for this. Thank you for asking me to see her. KENNETH POSEY MD DR: RONDA/jacquelyn JOB#: [id number] / [id number]
[2017-03-06] MEDS ORDERED: IV NORMAL SALINE 1000ML BAG 1,000 ML IV SCH (07:00)
[2017-03-06] MEDS: LOSARTAN POTASSIUM 50 MG TABLET. PO SCH (08:16)
[2017-03-06] MEDS: FUROSEMIDE 40 MG TABLET. PO SCH (08:16)
[2017-03-06] MEDS: amLODIPine BESYLATE 10 MG TABLET PO SCH (08:16)
[2017-03-06] MEDS: CARVEDILOL 12.5 MG TABLET. PO SCH ×2 (08:17→16:49)
--- NOTE | 2017-03-06 08:46 | PDOC ---
PROGRESS NOTES Chief Complaint Chief Complaint 1. CHF (unknown kind) on admit, HTN urgency POA started on nitro gtt 2. Headaches from nitro gtt and hTN urgency 3. HTN uncontrolled, accelerated 4. Obesity 5. Hx migraines 6. Dyslipidmeia 7. MIld PCM 8. reactive leukocytosis 9,.IZZY 10. CHest heaviness 11. COugh History of Present Illness History of Present Illness off nitro gtt Monday HEadaches/migraines better Cough though, dry Dw cards Cath today PLAN: [facility] Cardiac cath today CPM Dw sister and RN Vitals Vitals Vital Signs Date Time Temp Pulse Resp B/P (MAP) Pulse Ox O2 Delivery O2 Flow Rate FiO2 03/06/17 08:17 87 144/72 03/06/17 07:52 Nasal Cannula 1.0 03/06/17 06:13 98.6 16 98 98.6 Physical Exam General: Alert, Oriented X3, Cooperative, No acute distress, Other (looks uncomfortable from headachem, dry heaving) Heart: Regular rate, Normal S1, Normal S2 Lungs: Clear Abdomen: Normal bowel sounds, Soft, No tenderness, No hepatosplenomegaly, No masses Extremities: No clubbing, No cyanosis, No edema, Normal pulses, No tenderness/ swelling Skin: No rashes, No breakdown, No significant lesion Labs LABS Laboratory Tests Test 03/05/17 11:24 White Blood Count 10.0 x10^3/uL (4.0-11.0) Red Blood Count 4.25 x10^6/uL (3.50-5.40) Hemoglobin 12.5 g/dL (12.0-15.5) Hematocrit 37.9 % (36.0-47.0) Mean Corpuscular Volume 89 fL (79-100) Mean Corpuscular Hemoglobin 29 pg (25-35) Mean Corpuscular Hemoglobin Concent 33 g/dL (31-37) Red Cell Distribution Width 14.4 % (11.5-14.5) Platelet Count 187 x10^3/uL (140-400) Neutrophils (%) (Auto) 78 % (31-73) Lymphocytes (%) (Auto) 13 % (24-48) Monocytes (%) (Auto) 9 % (0-9) Eosinophils (%) (Auto) 0 % (0-3) Basophils (%) (Auto) 0 % (0-3) Neutrophils # (Auto) 7.7 x10^3uL (1.8-7.7) Lymphocytes # (Auto) 1.2 x10^3/uL (1.0-4.8) Monocytes # (Auto) 0.9 x10^3/uL (0.0-1.1) Eosinophils # (Auto) 0.0 x10^3/uL (0.0-0.7) Basophils # (Auto) 0.0 x10^3/uL (0.0-0.2) Sodium Level 139 mmol/L (136-145) Potassium Level 3.6 mmol/L (3.5-5.1) Chloride Level 102 mmol/L (98-107) Carbon Dioxide Level 31 mmol/L (21-32) Anion Gap 6 (6-14) Blood Urea Nitrogen 18 mg/dL (7-20) Creatinine 1.2 mg/dL (0.6-1.0) Estimated GFR (Cockcroft-Gault) 45.8 Glucose Level 114 mg/dL (70-99) Calcium Level 8.5 mg/dL (8.5-10.1) Magnesium Level 2.1 mg/dL (1.8-2.4) Troponin I Quantitative < 0.017 ng/mL (0.000-0.055) Triglycerides Level 83 mg/dL (0-150) Cholesterol Level 201 mg/dL (0-200) LDL Cholesterol, Calculated 106 mg/dL (0-100) VLDL Cholesterol, Calculated 17 mg/dL (0-40) Non-HDL Cholesterol Calculated 123 mg/dL (0-129) HDL Cholesterol 78 mg/dL (40-60) Cholesterol/HDL Ratio 2.6 Review of Systems Review of Systems cough, some headaches, all else is neg Comment Review of Relevant I have reviewed the following items wilbert (where applicable) has been applied. Labs Laboratory Tests Test 03/04/17 08:50 03/04/17 14:45 03/05/17 11:24 Troponin I Quantitative 0.044 ng/mL (0.000-0.055) 0.037 ng/mL (0.000-0.055) < 0.017 ng/mL (0.000-0.055) White Blood Count 10.0 x10^3/uL (4.0-11.0) Red Blood Count 4.25 x10^6/uL (3.50-5.40) Hemoglobin 12.5 g/dL (12.0-15.5) Hematocrit 37.9 % (36.0-47.0) Mean Corpuscular Volume 89 fL (79-100) Mean Corpuscular Hemoglobin 29 pg (25-35) Mean Corpuscular Hemoglobin Concent 33 g/dL (31-37) Red Cell Distribution Width 14.4 % (11.5-14.5) Platelet Count 187 x10^3/uL (140-400) Neutrophils (%) (Auto) 78 % (31-73) Lymphocytes (%) (Auto) 13 % (24-48) Monocytes (%) (Auto) 9 % (0-9) Eosinophils (%) (Auto) 0 % (0-3) Basophils (%) (Auto) 0 % (0-3) Neutrophils # (Auto) 7.7 x10^3uL (1.8-7.7) Lymphocytes # (Auto) 1.2 x10^3/uL (1.0-4.8) Monocytes # (Auto) 0.9 x10^3/uL (0.0-1.1) Eosinophils # (Auto) 0.0 x10^3/uL (0.0-0.7) Basophils # (Auto) 0.0 x10^3/uL (0.0-0.2) Sodium Level 139 mmol/L (136-145) Potassium Level 3.6 mmol/L (3.5-5.1) Chloride Level 102 mmol/L (98-107) Carbon Dioxide Level 31 mmol/L (21-32) Anion Gap 6 (6-14) Blood Urea Nitrogen 18 mg/dL (7-20) Creatinine 1.2 mg/dL (0.6-1.0) Estimated GFR (Cockcroft-Gault) 45.8 Glucose Level 114 mg/dL (70-99) Calcium Level 8.5 mg/dL (8.5-10.1) Magnesium Level 2.1 mg/dL (1.8-2.4) Triglycerides Level 83 mg/dL (0-150) Cholesterol Level 201 mg/dL (0-200) LDL Cholesterol, Calculated 106 mg/dL (0-100) VLDL Cholesterol, Calculated 17 mg/dL (0-40) Non-HDL Cholesterol Calculated 123 mg/dL (0-129) HDL Cholesterol 78 mg/dL (40-60) Cholesterol/HDL Ratio 2.6 Laboratory Tests Test 03/05/17 11:24 White Blood Count 10.0 x10^3/uL (4.0-11.0) Red Blood Count 4.25 x10^6/uL (3.50-5.40) Hemoglobin 12.5 g/dL (12.0-15.5) Hematocrit 37.9 % (36.0-47.0) Mean Corpuscular Volume 89 fL (79-100) Mean Corpuscular Hemoglobin 29 pg (25-35) Mean Corpuscular Hemoglobin Concent 33 g/dL (31-37) Red Cell Distribution Width 14.4 % (11.5-14.5) Platelet Count 187 x10^3/uL (140-400) Neutrophils (%) (Auto) 78 % (31-73) Lymphocytes (%) (Auto) 13 % (24-48) Monocytes (%) (Auto) 9 % (0-9) Eosinophils (%) (Auto) 0 % (0-3) Basophils (%) (Auto) 0 % (0-3) Neutrophils # (Auto) 7.7 x10^3uL (1.8-7.7) Lymphocytes # (Auto) 1.2 x10^3/uL (1.0-4.8) Monocytes # (Auto) 0.9 x10^3/uL (0.0-1.1) Eosinophils # (Auto) 0.0 x10^3/uL (0.0-0.7) Basophils # (Auto) 0.0 x10^3/uL (0.0-0.2) Sodium Level 139 mmol/L (136-145) Potassium Level 3.6 mmol/L (3.5-5.1) Chloride Level 102 mmol/L (98-107) Carbon Dioxide Level 31 mmol/L (21-32) Anion Gap 6 (6-14) Blood Urea Nitrogen 18 mg/dL (7-20) Creatinine 1.2 mg/dL (0.6-1.0) Estimated GFR (Cockcroft-Gault) 45.8 Glucose Level 114 mg/dL (70-99) Calcium Level 8.5 mg/dL (8.5-10.1) Magnesium Level 2.1 mg/dL (1.8-2.4) Troponin I Quantitative < 0.017 ng/mL (0.000-0.055) Triglycerides Level 83 mg/dL (0-150) Cholesterol Level 201 mg/dL (0-200) LDL Cholesterol, Calculated 106 mg/dL (0-100) VLDL Cholesterol, Calculated 17 mg/dL (0-40) Non-HDL Cholesterol Calculated 123 mg/dL (0-129) HDL Cholesterol 78 mg/dL (40-60) Cholesterol/HDL Ratio 2.6 Medications Current Medications Furosemide (Lasix) 40 mg 1X ONCE IVP Last administered on 03/04/17 02:48; Start 03/04/17 at 02:45; Stop 03/04/17 at 02:46; Status DC Nitroglycerin/ Dextrose 250 ml @ 0 mls/hr 1X ONCE IV Last administered on 02:48; Start 03/04/17 at 02:45; Stop 03/04/17 at 02:46; Status DC Iohexol (Omnipaque 300 Mg/ml) 75 ml 1X ONCE IV ; Start 03/04/17 at 02:45; Stop 03/04/17 at 02:46; Status DC Info (Do NOT chart on this entry -- for MONITORING) 1 each PRN DAILY PRN MC SEE COMMENTS; Start 03/04/17 at 02:45; Stop 03/06/17 at 02:44; Status DC Ondansetron HCl (Zofran) 4 mg PRN Q8HRS PRN IV NAUSEA/VOMITING Last administered on 03/04/17 04:17; Start 03/04/17 at 03:00; Stop 03/04/17 at 11:09; Status DC Acetaminophen (Tylenol) 650 mg PRN Q4HRS PRN PO FEVER Last administered on 21:01; Start 03/04/17 at 03:00; Stop 03/05/17 at 02:59; Status DC Nitroglycerin/ Dextrose 250 ml @ 0 mls/hr CONT PRN IV SEE I/O RECORD; Start 03/04/17 at 04:15 Ondansetron HCl (Zofran) 4 mg PRN Q6HRS PRN IV NAUSEA/VOMITING Last administered on 03/04/17 22:45; Start 03/04/17 at 11:08; Stop 03/05/17 at 11:07; Status DC Amlodipine Besylate (Norvasc) 10 mg DAILY PO Last administered on 03/06/17 08: 16; Start 03/04/17 at 12:00 Furosemide (Lasix) 40 mg DAILY PO Last administered on 03/06/17 08:16; Start at 12:00 Nitroglycerin (Nitrostat) 0.4 mg PRN Q5MIN PRN SL CHEST PAIN; Start 03/04/17 at 11:15 Simvastatin (Zocor) 20 mg QHS PO Last administered on 03/05/17 20:28; Start 03/04/17 at 21:00 Acetaminophen/ Butalbital/ Caffeine (Fioricet) 1 tab PRN DAILY PRN PO MIGRAINE HEADACHE Last administered on 03/05/17 11:03; Start 03/04/17 at 11:15 Carvedilol (Coreg) 25 mg BIDWMEALS PO Last administered on 03/06/17 08:17; Start 03/04/17 at 12:00 Losartan Potassium (Cozaar) 100 mg DAILY PO Last administered on 03/06/17 08:16 ; Start 03/04/17 at 12:00 Labetalol HCl (Normodyne) 10 mg PRN Q2HR PRN IVP HYPERTENSION, SEE COMMENTS; Start 03/04/17 at 12:00 Acetaminophen/ Codeine Phosphate (Tylenol #3) 1 tab PRN Q6HRS PRN PO PAIN Last administered on 03/05/17 20:28; Start 03/04/17 at 12:00 Morphine Sulfate 2 mg PRN Q2HR PRN IV PAIN Last administered on 03/04/17 22:48 ; Start 03/04/17 at 12:00 Enoxaparin Sodium (Lovenox 40mg Syringe) 40 mg Q24H SQ Last administered on 03/05 12:17; Start 03/04/17 at 13:00 Hydralazine HCl (Apresoline) 25 mg [id number] PO Last administered on 03/05/17 06:17 ; Start 03/04/17 at 18:00; Stop 03/05/17 at 13:07; Status DC Sodium Chloride 1,000 ml @ 0 mls/hr Q0M IV ; Start 03/06/17 at 07:00 Hydralazine HCl (Apresoline) 50 mg [id number] PO Last administered on 03/06/17t 06:08 ; Start 03/05/17 at 18:00 Active Scripts Active Reported NITROGLYCERIN SubLingual (Nitroglycerin) 0.4 Mg Tab.subl 0.4 Mg SL PRN Q5MIN PRN Norvasc (Amlodipine Besylate) 10 Mg Tablet 10 Mg PO DAILY Simvastatin 20 Mg Tablet 1 Tab PO QHS Fioricet 50-300-40 Mg Capsule (Butalb/Acetaminophen/Caffeine) 1 Each Capsule 1 Each PO DAILY PRN Furosemide 40 Mg Tablet 1 Tab PO DAILY Losartan Potassium 100 Mg Tablet 100 Mg PO DAILY Carvedilol 25 Mg Tablet 1 Tab PO DAILY Vitals/I & O Vital Sign - Last 24 Hours 03/05/17 03/05/17 03/05/17 03/05/17 11:12 15:16 17:29 17:29 Temp 98.7 98.1 98.7 98.1 Pulse 90 74 74 74 Resp 18 21 B/P (MAP) 154/80 (104) 158/72 (100) 158/72 158/72 Pulse Ox 100 99 O2 Delivery Nasal Cannula Nasal Cannula O2 Flow Rate 2.0 2.0 03/05/17 03/05/17 03/05/17 03/05/17 18:40 20:28 20:37 21:28 Temp 98.4 98.4 Pulse 87 Resp 18 B/P (MAP) 141/71 (94) Pulse Ox 99 O2 Delivery Nasal Cannula Nasal Cannula Nasal Cannula Nasal Cannula O2 Flow Rate 2.0 2.0 03/05/17 03/06/17 03/06/17 03/06/17 23:05 03:11 06:08 06:13 Temp 98.6 98.5 98.6 98.6 98.5 98.6 Pulse 84 82 87 87 Resp 16 14 16 B/P (MAP) 135/79 (97) 141/80 (100) 149/80 149/80 (103) Pulse Ox 97 97 98 O2 Delivery Nasal Cannula Nasal Cannula Nasal Cannula O2 Flow Rate 2.0 2.0 2.0 03/06/17 03/06/17 03/06/17 03/06/17 07:52 08:16 08:16 08:17 Pulse 87 87 87 B/P (MAP) 144/72 144/72 144/72 O2 Delivery Nasal Cannula O2 Flow Rate 1.0 Intake and Output 03/05/17 03/05/17 03/06/17 15:00 23:00 07:00 Intake Total 500 ml 460 ml Output Total 1100 ml 200 ml Balance -600 ml 260 ml YOEL CHAVEZ MD Mar 06, 2017 08:46
[2017-03-06] MEDS: guaiFENesin DM 200MG/20MG 10 ML SYRUP PO SCH ×4 (09:13→21:20)
[2017-03-06] MEDS: ENOXAPARIN 40 MG/0.4 ML SYRINGE. SQ SCH (13:00)
[2017-03-06] MEDS ORDERED: IODIXANOL 320 MG/ML 100 ML VIAL. ONE (15:41)
[2017-03-06] MEDS ORDERED: LIDOCAINE 2% 20 ML VIAL. ONE (15:41)
[2017-03-06] MEDS ORDERED: fentaNYL PF VIAL 100 MCG/2 ML VIAL ONE (15:52)
[2017-03-06] MEDS ORDERED: MIDAZOLAM HCL/PF 2 MG/2 ML VIAL. ONE (15:52)
[2017-03-06] MEDS ORDERED: MIDAZOLAM HCL/PF 2 MG/2 ML VIAL. IV ONE (16:15)
[2017-03-06] MEDS ORDERED: CONTRAST GIVEN MC PRN (16:15)
[2017-03-06] MEDS ORDERED: LIDOCAINE 2% 20 ML VIAL. IJ ONE (16:15)
[2017-03-06] MEDS ORDERED: IODIXANOL 320 MG/ML 100 ML VIAL. IART ONE (16:15)
[2017-03-06] MEDS ORDERED: fentaNYL PF VIAL 100 MCG/2 ML VIAL IV ONE (16:15)
--- NOTE | 2017-03-06 16:48 | CARD ---
APPROVED REPORT Procedure(s) performed: Left Heart Catheterization Coronary angiography Renal selective bilateral angiography HISTORY The patient is a 61 year-old female with a history of : hypertension, dyslipidemia. INDICATION The indication(s) include : Flash pulmonary edema, chest pain and hypertensive urgency. . CASE TECHNIQUE During this case, Fluoroscopy and Iso-osmolar contrast were used for imaging. PROCEDURE NARRATIVE The patient was brought electively to the cardiac catheterization lab. A timeout was performed confi rming the patient's name, date of , procedure, and site of procedure. All necessary personnel w ere wearing the appropriate protective equipment and radiation monitor devices. After explaining the risks and benefits of the procedure and alternatives, informed consent was obtained. (See nursing no jose for medications administered). The right groin was sterilely prepped and draped in the usual fas hion. The right groin was infiltrated with 10 mL of 2% lidocaine for subcutaneous anesthesia. A 6 F rench Terumo glide sheath was inserted into the right femoral artery without difficulty. Right and l eft coronary angiography was performed using a 6Fr JR4 and JL4 catheters. Left ventricular end diast olic pressure was obtained with a pigtail catheter and pullback. Finally, a DSA image was obtained o f the abdominal aorta, renal vessels with a pigtail catheter. A JR4 catheter was also used to selecti ve engage the renal arteries and measure pressures. All catheter exchanges and advancements were perf ormed over a guidewire. At case completion the right femoral sheath was removed and an angioseal pro duct was deployed. The patient tolerated the procedure well. HEMODYNAMICS: LVEDP 18 mm Hg No gradient on LV to aortic pullback. LEFT VENTRICULOGRAM: Deferred due to renal insufficiency. CORONARY ANGIOGRAPHY: LM is a large caliber vessel with normal angiographic appearance. LAD is a large caliber vessel with normal angiographic appearance. D1 is a moderate caliber vessel with normal angiographic appearance. LCx is a moderate to large caliber co-dominant vessel with normal angiographic appearance. OM1 is a large caliber vessel with normal angiographic appearance. RCA is a large caliber dominant vessel with normal angiographic appearance. RPDA is a moderate caliber vessels with normal angiographic appearance. *Overall, appearance consistent with hypertensive heart disease. PERIPHERAL ANGIOGRAPHY: Aorta: No significant disease. Right renal artery: No significant disease. Left renal artery: Main renal artery has an ostial 20% stenosis. There is a small accessory renal art abhinav supplying the hilum. Conclusion 1. No evidence of obstructive coronary artery disease. 2. No evidence of renal artery disease. 3. Mildly elevated left sided filling pressures. Recommendations Aggressive Medical Therapy
[2017-03-06] MEDS: SIMVASTATIN 20 MG TABLET PO SCH (21:20)
--- NOTE | 2017-03-06 21:32 | PDOC ---
Provider Note Provider Note The coronary arteries were normal confirming the MPI results. No evidence of renal artery stenosis. The flash pulmonary edema is probably due to uncontrolled hypertension and possible dietary indiscretion. Okay with me to be discharged tomorrow. She was asked to follow-up on her blood pressure more closely. KENNETH POSEY MD Mar 06, 2017 21:32
[2017-03-07] VITALS: BP 153/89
[2017-03-07 01:00] VITALS: BP 148/97
[2017-03-07 02:00] VITALS: BP 117/68
[2017-03-07 02:45] VITALS: BP 136/77
[2017-03-07 07:00] VITALS: BP 148/85
[2017-03-07] MEDS: amLODIPine BESYLATE 10 MG TABLET PO SCH (08:25)
[2017-03-07] MEDS: FUROSEMIDE 40 MG TABLET. PO SCH (08:25)
[2017-03-07] MEDS: guaiFENesin DM 200MG/20MG 10 ML SYRUP PO SCH ×2 (08:26→13:28)
[2017-03-07] MEDS: LOSARTAN POTASSIUM 50 MG TABLET. PO SCH (08:26)
[2017-03-07] MEDS: CARVEDILOL 12.5 MG TABLET. PO SCH (08:26)
[2017-03-07] MEDS ORDERED: HYDR-2869 PO (09:35)
[2017-03-07 11:00] VITALS: BP 132/71
--- NOTE | 2017-03-07 11:53 | PDOC3 ---
Discharge Summary Visit Information Date of Admission: Mar 04, 2017 Date of Discharge: Mar 07, 2017 Admitting Diagnosis Comment: 1. CHF (unknown kind) on admit, HTN urgency POA started on nitro gtt 2. Headaches from nitro gtt and hTN urgency 3. HTN uncontrolled, accelerated 4. Obesity 5. Hx migraines 6. Dyslipidmeia 7. MIld PCM 8. reactive leukocytosis 9,.IZZY 10. CHest heaviness 11. COugh Brief Hospital Course Allergies Allergies Coded Allergies Type Severity Reaction Last Updated Verified lisinopril Allergy Mild 08/23/16 Yes Vital Signs Vital Signs Date Time Temp Pulse Resp B/P (MAP) Pulse Ox O2 Delivery O2 Flow Rate FiO2 03/07/17 11:00 98.5 90 18 132/71 (91) 95 Room Air 98.5 03/06/17 23:00 2.0 Brief Hospital Course Ms. Chand is a 61 old AA female who came in with flash pulm edema, needing nitro gtt, Headaches from HTN urgency on top of nitro gtt on top of hx migraines , Better headaches. Off nitro gtt. To cont all 4-5 anti hypertensive meds (to add hydralazine 50 BID ) - new med we added to control BP Dw RN and cards Pt seen and examined Pt having some mild URI sxs, recommended OTC cough med and day quil. Likely viral,. CXR ok, no white ct no fevers DispO; home Dw Dtr too Time 31 mins Discharge Information Condition at Discharge: Improved, Stable Follow Up: Weeks (PCP if URI sxs no better in 2 weeks) Disposition/Orders: D/C to Home Scheduled Amlodipine Besylate (Norvasc), 10 MG PO DAILY, (Reported) Carvedilol (Carvedilol), 1 TAB PO DAILY, (Reported) Furosemide (Furosemide), 1 TAB PO DAILY, (Reported) Losartan Potassium (Losartan Potassium), 100 MG PO DAILY, (Reported) Simvastatin (Simvastatin), 1 TAB PO QHS, (Reported) Scheduled PRN Butalb/Acetaminophen/Caffeine (Fioricet 50-300-40 Mg Capsule), 1 EACH PO DAILY PRN for MIGRAINE HEADACHE, (Reported) Nitroglycerin (NITROGLYCERIN SubLingual), 0.4 MG SL PRN Q5MIN PRN for CHEST PAIN , (Reported) Discontinued Medications Carvedilol (Carvedilol), 1 TAB PO BID, (Reported) Clonidine Hcl (Clonidine Hcl), 1 TAB PO QHS, (Reported) Losartan Potassium (Losartan Potassium), 25 MG PO DAILY, (Reported) Nitroglycerin (Nitroglycerin), 2.5 MG PO, (Reported) Omeprazole/Sodium Bicarbonate (Omeprazole-Bicarb 40-1,680 Pkt), 1 EACH PO, ( Reported) YOEL CHAVEZ MD Mar 07, 2017 11:53
[2017-03-07] MEDS: ENOXAPARIN 40 MG/0.4 ML SYRINGE. SQ SCH (13:00)
== END 2017-03-07 13:40 | disposition home or self-care (01) | DRG 287 ==
LOC: ER 01:59 → 2 NORTH 02:46
PROVIDERS: ADMIT Internal Medicine; ATTEND Internal Medicine
PROC: 4A023N7 Measurement of Cardiac Sampling and Pressure, Left Heart, Percutaneous Approach (ICD-10-PCS; principal; 2017-03-06)
PROC: B2111ZZ Fluoroscopy of Multiple Coronary Arteries using Low Osmolar Contrast (ICD-10-PCS; 2017-03-06)
PROC: B2151ZZ Fluoroscopy of Left Heart using Low Osmolar Contrast (ICD-10-PCS; 2017-03-06)
DX: I11.0 Hypertensive heart disease with heart failure (principal); E44.1 Mild protein-calorie malnutrition; N17.9 Acute kidney failure, unspecified; I16.0 Hypertensive urgency; G43.909 Migraine, unspecified, not intractable, without status migrainosus; E78.5 Hyperlipidemia, unspecified; E66.9 Obesity, unspecified; I50.9 Heart failure, unspecified; R05 Cough; Z82.49 Family history of ischemic heart disease and other diseases of the circulatory system; Z87.01 Personal history of pneumonia (recurrent); Z90.49 Acquired absence of other specified parts of digestive tract; Z68.35 Body mass index [BMI] 35.0-35.9, adult; Z88.8 Allergy status to other drugs, medicaments and biological substances
CPT/HCPCS: 36246; 36252; 36415; 71010; 75625; 80048; 80061; 83735; 83880; 84484; 85027; 93005; 93306; 93458; 93970; 96365; 96375; C1769; C1771; C1892; G0269; J1650; J1940; J2250; J2270; J2405; J3010; J3490; 97116; 97530; 97535; 99285-25

== ENCOUNTER → 2017-03-21 | Outpatient (CLI) | payer BC ==
[2017-03-07 11:00] VITALS: BP 132/71
[~2017-03-21] MED LIST changes: +AMLO10TA4 PO; +BUTA1CAP29 PO; +CARV25TA2 PO; +FURO40TA4 PO; +HYDR-2869 PO; +LOSA100T6 PO; +NITR0.4T22 SL; +SIMV20TA3 PO; +ZOLPIDEM 5 MG TABLET. PO ONE
== END | disposition home or self-care (01) ==
LOC: SLPLAB 18:14
PROVIDERS: ATTEND Specialist
DX: G47.10 Hypersomnia, unspecified (principal)
CPT/HCPCS: 95810

== ENCOUNTER 2017-07-29 21:10 | Inpatient (IN) | payer BC ==
[~2017-07-29] VITALS: Ht 160 cm; Wt 93.9 kg
[~2017-07-29 21:10] MED LIST changes: -ZOLPIDEM 5 MG TABLET. PO ONE
--- NOTE | 2017-07-29 21:27 | PHYS DOC ---
Past Medical History Past Medical History: Bronchitis, CHF, Hypertension, Pneumonia Past Surgical History: Cholecystectomy Alcohol Use: None Drug Use: None Adult General Chief Complaint Chief Complaint: SHORTNESS OF BREATH HPI HPI Patient is a 62 year old [female] who presents with [2 days of progressive moderate dypsnea w wheezing, cough, subjective fever, body aches. hx CHF on diuretics; no Hx asthma/copd, not on home Oxygen. PCP: Dr. Williamson cardiology]: Dr. Garza Review of Systems Review of Systems Constitutional: Denies fever or chills [] Eyes: Denies change in visual acuity, redness, or eye pain [] HENT: Denies nasal congestion or sore throat [] Respiratory: Denies cough or shortness of breath [] Cardiovascular: No additional information not addressed in HPI [] GI: Denies abdominal pain, nausea, vomiting, bloody stools or diarrhea [] : Denies dysuria or hematuria [] Musculoskeletal: Denies back pain or joint pain [] Integument: Denies rash or skin lesions [] Neurologic: Denies headache, focal weakness or sensory changes [] Endocrine: Denies polyuria or polydipsia [] Current Medications Current Medications Current Medications Medications (Trade) Dose Ordered Sig/Radha Start Time Stop Time Status Last Admin Dose Admin Albuterol Sulfate (Ventolin Neb Soln) 2.5 mg 1X ONCE 07/29/17 22:00 07/29/17 22:01 DC 07/29/17 21:34 2.5 MG Aspirin (Children'S Aspirin) 324 mg 1X ONCE 07/29/17 22:00 07/29/17 22:01 DC 07/29/17 22:00 324 MG Furosemide (Lasix) 40 mg 1X ONCE 07/29/17 22:00 07/29/17 22:01 DC 07/29/17 22:01 40 MG Nitroglycerin (Nitro-Bid Oint) 1 inch 1X ONCE 07/29/17 22:30 07/29/17 22:31 DC 07/29/17 22:27 1 INCH Nitroglycerin (Nitrostat) 0.4 mg PRN Q5MIN PRN 07/29/17 21:45 07/29/17 21:59 0.4 MG Allergies Allergies Allergies Coded Allergies Type Severity Reaction Last Updated Verified lisinopril Allergy Mild 08/23/16 Yes Physical Exam Physical Exam Constitutional: Well developed, well nourished, no acute distress, non-toxic appearance. [] HENT: Normocephalic, atraumatic, bilateral external ears normal, oropharynx moist, no oral exudates, nose normal. [] Eyes: PERRLA, EOMI, conjunctiva normal, no discharge. [] Neck: Normal range of motion, no tenderness, supple, no stridor. [] Cardiovascular:Heart rate regular rhythm, no murmur [] Lungs & Thorax: Bilateral breath sounds w wheezing w auscultation [] Abdomen: Bowel sounds normal, soft, no tenderness, no masses, no pulsatile masses. [] Skin: Warm, dry, no erythema, no rash. [] Back: No tenderness, no CVA tenderness. [] Extremities: No tenderness, no cyanosis, no clubbing, ROM intact, 1+ edema. [] Neurologic: Alert and oriented X 3, normal motor function, normal sensory function, no focal deficits noted. [] Psychologic: Affect normal, judgement normal, mood normal. [] Current Patient Data Vital Signs Vital Signs Date Time Temp Pulse Resp B/P (MAP) Pulse Ox O2 Delivery O2 Flow Rate FiO2 07/29/17 22:52 78 19 170/99 (122) 98 Nasal Cannula 2.0 07/29/17 21:15 99.5 99.5 Lab Values Laboratory Tests Test 07/29/17 21:30 07/29/17 22:30 White Blood Count 10.5 x10^3/uL (4.0-11.0) Red Blood Count 4.33 x10^6/uL (3.50-5.40) Hemoglobin 12.7 g/dL (12.0-15.5) Hematocrit 38.4 % (36.0-47.0) Mean Corpuscular Volume 89 fL (79-100) Mean Corpuscular Hemoglobin 29 pg (25-35) Mean Corpuscular Hemoglobin Concent 33 g/dL (31-37) Red Cell Distribution Width 14.2 % (11.5-14.5) Platelet Count 221 x10^3/uL (140-400) Neutrophils (%) (Auto) 64 % (31-73) Lymphocytes (%) (Auto) 26 % (24-48) Monocytes (%) (Auto) 9 % (0-9) Eosinophils (%) (Auto) 1 % (0-3) Basophils (%) (Auto) 1 % (0-3) Neutrophils # (Auto) 6.7 x10^3uL (1.8-7.7) Lymphocytes # (Auto) 2.7 x10^3/uL (1.0-4.8) Monocytes # (Auto) 0.9 x10^3/uL (0.0-1.1) Eosinophils # (Auto) 0.1 x10^3/uL (0.0-0.7) Basophils # (Auto) 0.1 x10^3/uL (0.0-0.2) Sodium Level 138 mmol/L (136-145) Potassium Level 3.5 mmol/L (3.5-5.1) Chloride Level 99 mmol/L (98-107) Carbon Dioxide Level 28 mmol/L (21-32) Anion Gap 11 (6-14) Blood Urea Nitrogen 19 mg/dL (7-20) Creatinine 1.6 mg/dL (0.6-1.0) H Estimated GFR (Cockcroft-Gault) 32.8 BUN/Creatinine Ratio 12 (6-20) Glucose Level 117 mg/dL (70-99) H Calcium Level 9.0 mg/dL (8.5-10.1) Total Bilirubin 0.4 mg/dL (0.2-1.0) Aspartate Amino Transferase (AST) 20 U/L (15-37) Alanine Aminotransferase (ALT) 19 U/L (14-59) Alkaline Phosphatase 130 U/L (46-116) H Troponin I Quantitative 0.017 ng/mL (0.000-0.055) Total Protein 7.6 g/dL (6.4-8.2) Albumin 3.6 g/dL (3.4-5.0) Albumin/Globulin Ratio 0.9 (1.0-1.7) L Urine Collection Type Unknown Urine Color Yellow Urine Clarity Clear Urine pH 6.0 Urine Specific [place] <=1.005 Urine Protein Negative mg/dL (NEG-TRACE) Urine Glucose (UA) Negative mg/dL (NEG) Urine Ketones (Stick) Negative mg/dL (NEG) Urine Blood Negative (NEG) Urine Nitrite Negative (NEG) Urine Bilirubin Negative (NEG) Urine Urobilinogen Dipstick 1.0 mg/dL (0.2 mg/dL) Urine Leukocyte Esterase Trace (NEG) Urine RBC 0 /HPF (0-2) Urine WBC 1-4 /HPF (0-4) Urine Squamous Epithelial Cells Mod /LPF Urine Bacteria Few /HPF (0-FEW) Urine Mucus Slight /LPF Laboratory Tests 07/29/17 21:30 Laboratory Tests 07/29/17 21:30 EKG EKG EKG shows a normal sinus rhythm rate of 93 no STEMI slight T-wave inversion V5 V6 administrative services assistant more with a LVH strain pattern my interpretation[] Radiology/Procedures Radiology/Procedures Chest x-ray cardiomegaly and vascular congestion consistent with CHF my interpretation[] Course & Med Decision Making Course & Med Decision Making Pertinent Labs and Imaging studies reviewed. (See chart for details) On arrival patient was audibly wheezing and had increased work of breathing although her sats were in the mid 90s on room air. Patient responded well to sublingual nitroglycerin, nitroglycerin paste and Lasix. We did give her albuterol which she did not tolerate well because it made her nauseous. [2300 p.m. reexamination patient feels improved looks comfortable after Lasix IV and an intra-Nitropaste and 3 sublingual nitroglycerin. We'll obtain blood cultures and viral nasal swabs. I feel this is accommodation of probably respiratory infection more likely to be viral combined with mild CHF exacerbation but with symptomatic dyspnea with exertion. Plan to admit to the hospital for further evaluation. At this time based on the (cardiac) wheezing that she presented with and her history of CHF I do not feel this is consistent with a pulmonary embolism. Discussed the case with Dr. Massey who agrees to admit the patient.] Dragon Disclaimer Dragon Disclaimer This electronic medical record was generated, in whole or in part, using a voice recognition dictation system. Departure Departure Impression: Primary Impression: CHF exacerbation Additional Impressions: Hypertensive urgency Dyspnea Viral syndrome Disposition: 09 ADMITTED INPATIENT Admitting Physician: Mariana Massey Condition: IMPROVED Referrals: MADAN BAXTER MD (PCP) Problem Qualifiers MICHAELA CLARKE MD Jul 29, 2017 21:27
[2017-07-29 21:37] LABS: BASO # 0.1 x10^3/uL (0.0-0.2); BASO % 1 % (0-3); EOS % 1 % (0-3); HEMATOCRIT 38.4 % (36.0-47.0); HEMOGLOBIN 12.7 g/dL (12.0-15.5); LYMPH # 2.7 x10^3/uL (1.0-4.8); LYMPH % 26 % (24-48); MEAN CORPUSCULAR HEMOGLOBIN 29 pg (25-35); MEAN CORPUSCULAR HGB CONC 33 g/dL (31-37); MEAN CORPUSCULAR VOLUME 89 fL (79-100); MONO % 9 % (0-9); NEUT % 64 % (31-73); PLATELET COUNT 221 x10^3/uL (140-400); RED BLOOD COUNT 4.33 x10^6/uL (3.50-5.40); RED CELL DISTRIBUTION WIDTH 14.2 % (11.5-14.5); WHITE BLOOD COUNT 10.5 x10^3/uL (4.0-11.0)
[2017-07-29] MEDS ORDERED: NITROGLYCERIN SUBLINGUAL 0.4 MG BOTTLE OF 25. SL PRN (21:45)
[2017-07-29 21:51] LABS: CREATININE 1.6 mg/dL (0.6-1.0); GFR 32.8; POTASSIUM 3.5 mmol/L (3.5-5.1)
[2017-07-29 21:57] LABS: ALBUMIN 3.6 g/dL (3.4-5.0); ALBUMIN/GLOBULIN RATIO 0.9 (1.0-1.7); TOTAL BILIRUBIN 0.4 mg/dL (0.2-1.0); TOTAL PROTEIN 7.6 g/dL (6.4-8.2)
[2017-07-29] MEDS ORDERED: ASPIRIN CHEWABLE 81 MG TABLET. PO ONE (22:00)
[2017-07-29] MEDS ORDERED: ALBUTEROL SULFATE 2.5 MG/3 ML NEBU. NEB ONE (22:00)
[2017-07-29] MEDS ORDERED: FUROSEMIDE 40 MG/4 ML VIAL. IVP ONE (22:00)
[2017-07-29] MEDS ORDERED: NITROGLYCERIN OINT 1 GM PACKET. TP ONE ×2 (22:30→23:45)
[2017-07-29] MEDS ORDERED: ACETAMINOPHEN 325 MG TABLET. PO PRN (23:30)
[2017-07-29] MEDS ORDERED: ONDANSETRON PF 4 MG/2 ML VIAL. IV PRN (23:30)
[2017-07-29] MEDS ORDERED: MORPHINE SULFATE 2 MG/ML DISP.SYRIN. IV PRN (23:30)
[2017-07-29 23:41] LABS: BILIRUBIN,URINE NEGATIVE (NEG); GLUCOSE,URINE NEGATIVE (NEG); NITRITE,URINE NEGATIVE (NEG); PROTEIN,URINE NEGATIVE (NEG-TRACE)
[2017-07-29 23:45] LABS: BACTERIA,URINE FEW /HPF (0-FEW); RBC,URINE 0 /HPF (0-2); SQUAMOUS EPITHELIAL CELL,UR MOD /LPF
[2017-07-29 23:52] LABS: OBC FLU VALID
[2017-07-30] VITALS (7 sets, daily range): BP systolic 115–168; BP diastolic 69–114
[2017-07-30] MEDS ORDERED: methylPREDNISolone SOD SUCC PF 125 MG/2 ML VIAL. IV ONE (00:30)
[2017-07-30] MEDS ORDERED: PNEUMOCOCCAL VAX SCREEN BY RX. MC ONE (02:30)
[2017-07-30] MEDS ORDERED: INFLUENZA VAX SCREEN BY RX. MC ONE (02:30)
--- NOTE | 2017-07-30 08:02 | RAD ---
CHEST AP ONLY Clinical Indication: short of breath Comparison: Chest radiograph dated 03/04/2017 Findings: Low lung volume. No focal consolidation. Apparent right hilar fullness likely accentuated due to low lung volume. No pleural effusion or pneumothorax. Stable mild cardiomegaly. Stable tortuous thoracic aorta. No acute osseous abnormality. IMPRESSION: 1. No focal consolidation. 2. Stable mild cardiomegaly.
[2017-07-30] MEDS ORDERED: FLU VACC QS2017-18 (36MOS+)/PF 0.5 ML SYRINGE. VAX IM ONE (09:00)
[2017-07-30] MEDS ORDERED: PNEUMOC CONJ VACC 23-VALENT 0.5 ML VIAL. VAX IM ONE (09:00)
--- NOTE | 2017-07-30 12:11 | EKG ---
[facility] [address] [place] [address] Test Date: 2017-07-29 Test Time: 21:24:01 Pat Name: ANUEL MO Department: Room: 528 1 Gender: F Head Of [employer]: : 1955 Requested By: MICHAELA CLARKE Order Number: [id number] Reading MD: Montserrat Amanda Measurements Intervals [place] Rate: 93 P: 42 CO: 122 QRS: 6 QRSD: 110 T: 88 QT: 364 QTc: 455 Interpretive Statements SINUS RHYTHM LEFT ATRIAL ABNORMALITY LVH WITH REPOLARIZATION ABNORMALITY ABNORMAL ECG Electronically Signed On 07-30-2017 17:07:30 CDT by Montserrat Amanda
[2017-07-30] MEDS ORDERED: NITROGLYCERIN SUBLINGUAL 0.4 MG BOTTLE OF 25. SL PRN (12:45)
[2017-07-30] MEDS ORDERED: BUTALB/APAP/CAFEIN 50/325/40MG TABLET. PO PRN (13:00)
[2017-07-30] MEDS: FUROSEMIDE 40 MG TABLET. PO SCH (13:10)
[2017-07-30] MEDS: CARVEDILOL 12.5 MG TABLET. PO SCH (13:10)
[2017-07-30] MEDS: LOSARTAN POTASSIUM 50 MG TABLET. PO SCH (13:12)
[2017-07-30] MEDS: amLODIPine BESYLATE 10 MG TABLET PO SCH (13:12)
--- NOTE | 2017-07-30 13:37 | CONS ---
DATE OF CONSULTATION: 07/30/2017 REASON FOR CONSULTATION: Hypertension and shortness of breath. HISTORY OF PRESENT ILLNESS: The patient is a 62-year-old woman with past medical history of hypertension and diastolic heart failure, who presented to the hospital in the setting of progressive upper respiratory tract infection symptoms. She has been having some sore throat and cough and fevers over the course of the last 48 hours. Initial evaluation in the ER also revealed significantly elevated blood pressure with systolic blood pressure over 180 and this was likely in the setting of her not being able to take her medications due to her illness. She otherwise denies any chest pain, orthopnea, PND or lower extremity edema at baseline in the house. PAST MEDICAL HISTORY: 1. Hypertension. 2. Dyslipidemia. 3. Diastolic heart failure. 4. Morbid obesity. ALLERGIES: LISINOPRIL. FAMILY HISTORY: Noncontributory. SOCIAL HISTORY: The patient denies any alcohol, tobacco or illicit drug use. REVIEW OF SYSTEMS: Negative for 10 out of 14 systems reviewed unless otherwise mentioned above in HPI. PHYSICAL EXAMINATION: VITAL SIGNS: Afebrile, 85, 182/87, 96% on room air. GENERAL: She is in mild distress from coughing. HEAD AND NECK: Unremarkable. CARDIAC: Regular rate and rhythm without murmurs, rubs or gallops. LUNGS: Bilateral rhonchi. ABDOMEN: Obese, nontender, nondistended. EXTREMITIES: No clubbing, cyanosis or edema. 2+ radial and dorsalis pedis pulses. NEUROLOGIC: No focal deficits. MUSCULOSKELETAL: No trauma. DIAGNOSTIC STUDIES: Hemoglobin, platelets within normal limits. Creatinine is mildly elevated from baseline of 1.2 to 1.6. Troponin negative x 1. Chest x-ray is unremarkable. EKG is reviewed and shows sinus rhythm with LVH. She had a cardiac catheterization 3 months ago with normal coronary angiography. She did not have any significant renal stenosis on renal angiography. IMPRESSION: Hypertensive urgency secondary to lack of medications in the setting of acute upper respiratory tract infection. RECOMMENDATIONS: Reinitiate home medications and treatment of upper respiratory tract infection per primary care team. Please call with any further questions. No further cardiac testing necessary at this time. The patient will be followed again by Dr. Amanda tomorrow when she returns to [facility]. Thank you for this consultation. GAIL S. KATRAPATI, MD DR: [place]/jacquelyn JOB#: [id number] / [id number]
[2017-07-30] MEDS: IPRATRPIUM/ALBUTEROL 0.5/2.5MG 3 ML NEBU. NEB SCH ×2 (15:31→20:16)
--- NOTE | 2017-07-30 16:08 | PDOC ---
PULMONARY PROGRESS NOTES Vitals Vital Signs Date Time Temp Pulse Resp B/P (MAP) Pulse Ox O2 Delivery O2 Flow Rate FiO2 07/30/17 15:34 97 Nasal Cannula 1.0 07/30/17 13:12 85 182/87 07/30/17 11:00 98.2 19 98.2 Lungs: Clear Cardiovascular: S1, S2 Labs Laboratory Tests Test 07/29/17 21:30 07/29/17 22:30 07/29/17 23:15 07/29/17 23:30 White Blood Count 10.5 x10^3/uL (4.0-11.0) Red Blood Count 4.33 x10^6/uL (3.50-5.40) Hemoglobin 12.7 g/dL (12.0-15.5) Hematocrit 38.4 % (36.0-47.0) Mean Corpuscular Volume 89 fL (79-100) Mean Corpuscular Hemoglobin 29 pg (25-35) Mean Corpuscular Hemoglobin Concent 33 g/dL (31-37) Red Cell Distribution Width 14.2 % (11.5-14.5) Platelet Count 221 x10^3/uL (140-400) Neutrophils (%) (Auto) 64 % (31-73) Lymphocytes (%) (Auto) 26 % (24-48) Monocytes (%) (Auto) 9 % (0-9) Eosinophils (%) (Auto) 1 % (0-3) Basophils (%) (Auto) 1 % (0-3) Neutrophils # (Auto) 6.7 x10^3uL (1.8-7.7) Lymphocytes # (Auto) 2.7 x10^3/uL (1.0-4.8) Monocytes # (Auto) 0.9 x10^3/uL (0.0-1.1) Eosinophils # (Auto) 0.1 x10^3/uL (0.0-0.7) Basophils # (Auto) 0.1 x10^3/uL (0.0-0.2) Sodium Level 138 mmol/L (136-145) Potassium Level 3.5 mmol/L (3.5-5.1) Chloride Level 99 mmol/L (98-107) Carbon Dioxide Level 28 mmol/L (21-32) Anion Gap 11 (6-14) Blood Urea Nitrogen 19 mg/dL (7-20) Creatinine 1.6 mg/dL (0.6-1.0) Estimated GFR (Cockcroft-Gault) 32.8 BUN/Creatinine Ratio 12 (6-20) Glucose Level 117 mg/dL (70-99) Calcium Level 9.0 mg/dL (8.5-10.1) Total Bilirubin 0.4 mg/dL (0.2-1.0) Aspartate Amino Transf (AST/SGOT) 20 U/L (15-37) Alanine Aminotransferase (ALT/SGPT) 19 U/L (14-59) Alkaline Phosphatase 130 U/L (46-116) Troponin I Quantitative 0.017 ng/mL (0.000-0.055) Total Protein 7.6 g/dL (6.4-8.2) Albumin 3.6 g/dL (3.4-5.0) Albumin/Globulin Ratio 0.9 (1.0-1.7) Urine Collection Type Unknown Urine Color Yellow Urine Clarity Clear Urine pH 6.0 Urine Specific [place] <=1.005 Urine Protein Negative mg/dL (NEG-TRACE) Urine Glucose (UA) Negative mg/dL (NEG) Urine Ketones (Stick) Negative mg/dL (NEG) Urine Blood Negative (NEG) Urine Nitrite Negative (NEG) Urine Bilirubin Negative (NEG) Urine Urobilinogen Dipstick 1.0 mg/dL (0.2 mg/dL) Urine Leukocyte Esterase Trace (NEG) Urine RBC 0 /HPF (0-2) Urine WBC 1-4 /HPF (0-4) Urine Squamous Epithelial Cells Mod /LPF Urine Bacteria Few /HPF (0-FEW) Urine Mucus Slight /LPF Lactic Acid Level 1.1 mmol/L (0.4-2.0) Influenza Type A Antigen Negative (NEGATIVE) Influenza Type B Antigen Negative (NEGATIVE) Laboratory Tests Test 07/29/17 21:30 07/29/17 22:30 07/29/17 23:15 07/29/17 23:30 White Blood Count 10.5 x10^3/uL (4.0-11.0) Red Blood Count 4.33 x10^6/uL (3.50-5.40) Hemoglobin 12.7 g/dL (12.0-15.5) Hematocrit 38.4 % (36.0-47.0) Mean Corpuscular Volume 89 fL (79-100) Mean Corpuscular Hemoglobin 29 pg (25-35) Mean Corpuscular Hemoglobin Concent 33 g/dL (31-37) Red Cell Distribution Width 14.2 % (11.5-14.5) Platelet Count 221 x10^3/uL (140-400) Neutrophils (%) (Auto) 64 % (31-73) Lymphocytes (%) (Auto) 26 % (24-48) Monocytes (%) (Auto) 9 % (0-9) Eosinophils (%) (Auto) 1 % (0-3) Basophils (%) (Auto) 1 % (0-3) Neutrophils # (Auto) 6.7 x10^3uL (1.8-7.7) Lymphocytes # (Auto) 2.7 x10^3/uL (1.0-4.8) Monocytes # (Auto) 0.9 x10^3/uL (0.0-1.1) Eosinophils # (Auto) 0.1 x10^3/uL (0.0-0.7) Basophils # (Auto) 0.1 x10^3/uL (0.0-0.2) Sodium Level 138 mmol/L (136-145) Potassium Level 3.5 mmol/L (3.5-5.1) Chloride Level 99 mmol/L (98-107) Carbon Dioxide Level 28 mmol/L (21-32) Anion Gap 11 (6-14) Blood Urea Nitrogen 19 mg/dL (7-20) Creatinine 1.6 mg/dL (0.6-1.0) Estimated GFR (Cockcroft-Gault) 32.8 BUN/Creatinine Ratio 12 (6-20) Glucose Level 117 mg/dL (70-99) Calcium Level 9.0 mg/dL (8.5-10.1) Total Bilirubin 0.4 mg/dL (0.2-1.0) Aspartate Amino Transf (AST/SGOT) 20 U/L (15-37) Alanine Aminotransferase (ALT/SGPT) 19 U/L (14-59) Alkaline Phosphatase 130 U/L (46-116) Troponin I Quantitative 0.017 ng/mL (0.000-0.055) Total Protein 7.6 g/dL (6.4-8.2) Albumin 3.6 g/dL (3.4-5.0) Albumin/Globulin Ratio 0.9 (1.0-1.7) Urine Collection Type Unknown Urine Color Yellow Urine Clarity Clear Urine pH 6.0 Urine Specific [place] <=1.005 Urine Protein Negative mg/dL (NEG-TRACE) Urine Glucose (UA) Negative mg/dL (NEG) Urine Ketones (Stick) Negative mg/dL (NEG) Urine Blood Negative (NEG) Urine Nitrite Negative (NEG) Urine Bilirubin Negative (NEG) Urine Urobilinogen Dipstick 1.0 mg/dL (0.2 mg/dL) Urine Leukocyte Esterase Trace (NEG) Urine RBC 0 /HPF (0-2) Urine WBC 1-4 /HPF (0-4) Urine Squamous Epithelial Cells Mod /LPF Urine Bacteria Few /HPF (0-FEW) Urine Mucus Slight /LPF Lactic Acid Level 1.1 mmol/L (0.4-2.0) Influenza Type A Antigen Negative (NEGATIVE) Influenza Type B Antigen Negative (NEGATIVE) Medications Active Scripts Medications Dose Route/Sig Max Daily Dose Days Date Category Hydralazine Hcl 50 Mg Tablet 1 Tab PO BID 03/07/17 Rx NITROGLYCERIN SubLingual (Nitroglycerin) 0.4 Mg Tab.subl 0.4 Mg SL PRN Q5MIN PRN 03/04/17 Reported Norvasc (Amlodipine Besylate) 10 Mg Tablet 10 Mg PO DAILY 03/04/17 Reported Simvastatin 20 Mg Tablet 1 Tab PO QHS 03/04/17 Reported Fioricet 50-300-40 Mg Capsule (Butalb/Acetaminophen/Caffeine) 1 Each Capsule 1 Each PO DAILY PRN 03/04/17 Reported Furosemide 40 Mg Tablet 1 Tab PO DAILY 03/04/17 Reported Losartan Potassium 100 Mg Tablet 100 Mg PO DAILY 03/04/17 Reported Carvedilol 25 Mg Tablet 1 Tab PO DAILY 03/04/17 Reported Impression . CONSULT DICTATED COUGH URI SEE ORDERS THANKS TIARRA BYERS MD Jul 30, 2017 16:08
[2017-07-30] MEDS: BENZONATATE 100 MG CAPSULE. PO SCH (20:50)
[2017-07-30] MEDS ORDERED: SIMVASTATIN 20 MG TABLET PO SCH (21:00)
--- NOTE | 2017-07-31 02:41 | CONS ---
DATE OF CONSULTATION: 07/30/2017 ATTENDING PHYSICIAN: Dr. Mariana Massey REASON FOR CONSULTATION: The patient seen in pulmonary consultation at the request of Dr. Massey for increasing shortness of air. The patient has been short of breath now for 2-3 days, started off with a sore throat and most of her problems was cough, mostly nonproductive, some chest discomfort related to the cough. No fever or chills. Cough, once again, mostly nonproductive. The patient has never smoked, does not utilize metered-dose inhalers at home, is not being treated for pneumonia or bronchitis and does not carry a history of asthma. Chest x-ray was reviewed. There was cardiomegaly with no vascular congestion. PAST MEDICAL HISTORY: Hypertension, hyperlipidemia, diastolic heart failure and morbid obesity. ALLERGIES: LISINOPRIL. FAMILY HISTORY: Noncontributory. No history of lung disorders. SOCIAL HISTORY: She denies any tobacco or alcohol. No illicit drugs. No environmental or occupational exposure. She has no pets at home. REVIEW OF SYSTEMS: As indicated above, otherwise the 10-point system was reviewed and negative. PHYSICAL EXAMINATION: GENERAL: Obese individual in no respiratory distress. VITAL SIGNS: Stable. O2 saturation currently on 1 liter was 92%. HEENT: Eyes, the sclerae were nonicteric. NECK: Jugular venous distention could not be assessed secondary to body habitus. CHEST: Full expansion. LUNGS: Coarse breath sounds and expiratory wheeze. CARDIOVASCULAR: Regular rate and rhythm with S1, S2, no S3. ABDOMEN: Soft, nontender and nondistended. EXTREMITIES: No clubbing, cyanosis or edema. NEUROLOGIC: The patient was awake, alert and following commands. A detailed neuro exam was not performed. LABORATORY DATA: White count was normal. Electrolytes were noted. Troponin was not elevated. Chest x-ray reveals some cardiomegaly. Influenza screen was negative. UA was noted. IMPRESSION: 1. Progressive dyspnea secondary to acute nonspecific bronchitis. 2. Wheezing secondary to acute bronchitis. 3. Cardiomegaly. 4. Hypertensive urgency. 5. Obesity. 6. Chronic diastolic heart failure. PLAN: 1. Recommend steroids and Levaquin. 3. Nebulized treatments. 4. Control blood pressure. 5. Avoid caffeinated beverages 6. Tessalon Perles if cough persists. I do appreciate the privilege in sharing the patient's care. TIARRA BYERS MD DR: [place] JOB#: [id number] / [id number]
[2017-07-31 03:04] VITALS: BP 122/81
[2017-07-31 05:42] LABS: BASO % 0 % (0-3); EOS % 1 % (0-3); HEMATOCRIT 37.3 % (36.0-47.0); HEMOGLOBIN 12.2 g/dL (12.0-15.5); LYMPH # 3.8 x10^3/uL (1.0-4.8); LYMPH % 32 % (24-48); MEAN CORPUSCULAR HEMOGLOBIN 29 pg (25-35); MEAN CORPUSCULAR HGB CONC 33 g/dL (31-37); MEAN CORPUSCULAR VOLUME 90 fL (79-100); MONO % 8 % (0-9); NEUT % 60 % (31-73); PLATELET COUNT 219 x10^3/uL (140-400); RED BLOOD COUNT 4.17 x10^6/uL (3.50-5.40); RED CELL DISTRIBUTION WIDTH 14.6 % (11.5-14.5)
[2017-07-31 06:18] LABS: CALCIUM 8.3 mg/dL (8.5-10.1); CREATININE 1.3 mg/dL (0.6-1.0); GFR 41.6; POTASSIUM 3.5 mmol/L (3.5-5.1)
[2017-07-31 07:00] VITALS: BP 140/79
--- NOTE | 2017-07-31 07:06 | HP ---
ADMIT DATE: 07/29/2017 CHIEF COMPLAINT: Shortness of breath and cough. HISTORY OF PRESENT ILLNESS: The patient is a pleasant middle-aged female who presents with shortness of breath and cough that has been occurring for 2 days. She rates it 7/10. She has associated weakness. She has some body aches. She tried taking some home meds, but that did not work. While in the ER, she is noted to be in heart failure and hypertensive urgency. I have discussed the case with ER physician. We are going to admit the patient and consult Pulmonary and Cardiology. PAST MEDICAL HISTORY: CHF with 32% ejection fraction, bronchitis, hypertension, pneumonia, cholecystectomy. ALLERGIES: LISINOPRIL. FAMILY HISTORY: Hypertension. SOCIAL HISTORY: She quit smoking, no drinking or drugs. MEDICATIONS: Reviewed. REVIEW OF SYSTEMS: GENERAL: No history of weight change, weakness or fevers. SKIN: No bruising, hair changes or rashes. EYES: No blurred, double or loss of vision. NOSE AND THROAT: No history of nosebleeds, hoarseness or sore throat. HEART: No history of palpitations, chest pain or shortness of breath on exertion. LUNGS: Denies cough, hemoptysis, wheezing. Complains of shortness of breath. GASTROINTESTINAL: Denies changes in appetite, nausea, vomiting, diarrhea or constipation. GENITOURINARY: No history of frequency, urgency, hesitancy or nocturia. NEUROLOGIC: Denies history of numbness, tingling, tremor or weakness. PSYCHIATRIC: No history of panic, anxiety or depression. ENDOCRINE: No history of heat or cold intolerance, polyuria or polydipsia. EXTREMITIES: Denies muscle weakness, joint pain, pain on walking or stiffness. PHYSICAL EXAMINATION: VITAL SIGNS: Temperature afebrile, pulse 64, respirations 18, blood pressure /80. GENERAL: She is alert, cooperative, coughing. HEART: Normal S1, S2. LUNGS: Diffuse wheezing with bronchitis type sound with a loud cough. ENDOCRINE: No thyromegaly. LYMPHATICS: No cervical nodes. HEMATOPOIETIC: No bruising. LABORATORY DATA: White count 10, hemoglobin 12, platelets 221. Electrolytes are normal other than a creatinine of 1.6 and a glucose of 117, alkaline phosphatase slightly high at 130. Troponin is 0. Chest x-ray shows cardiomegaly. Urinalysis does show some trace leukocyte esterase. ASSESSMENT AND PLAN: Zwzjc-zs-erabxmx systolic and diastolic heart failure with incidental finding of urinary tract infection and ujneg-qa-afsmedy renal insufficiency. The patient has been admitted. We will consult Cardiology and consult Pulmonary. IV antibiotics, DuoNebs, oxygen. We will consider diuresis if Cardiology agrees. PT, OT, frequent labs. FRANCISCO SMITH DO DR: RAFAELA/jacquelyn JOB#: [id number] / [id number]
[2017-07-31] MEDS: IPRATRPIUM/ALBUTEROL 0.5/2.5MG 3 ML NEBU. NEB SCH ×2 (08:30→12:08)
[2017-07-31] MEDS ORDERED: predniSONE 10 MG TABLET PO SCH (09:00)
[2017-07-31] MEDS: CARVEDILOL 12.5 MG TABLET. PO SCH (09:30)
[2017-07-31] MEDS: LOSARTAN POTASSIUM 50 MG TABLET. PO SCH (09:30)
[2017-07-31] MEDS: BENZONATATE 100 MG CAPSULE. PO SCH ×2 (09:31→14:02)
[2017-07-31] MEDS: FUROSEMIDE 40 MG TABLET. PO SCH (09:31)
[2017-07-31] MEDS: amLODIPine BESYLATE 10 MG TABLET PO SCH (09:32)
[2017-07-31 11:00] VITALS: BP 119/69
--- NOTE | 2017-07-31 11:19 | PDOC ---
PULMONARY PROGRESS NOTES Subjective PT FEELS BETTER LESS COUGH Vitals Vital Signs Date Time Temp Pulse Resp B/P (MAP) Pulse Ox O2 Delivery O2 Flow Rate FiO2 07/31/17 09:32 78 140/79 07/31/17 08:30 96 Nasal Cannula 1.0 07/31/17 07:00 97.7 18 97.7 ROS: No Nausea, No Chest Pain, No Abdominal Pain, No Increase Cough Lungs: Clear Cardiovascular: S1, S2 Abdomen: Soft Neuro Exam: Alert Extremities: No Edema Skin: Warm Labs Laboratory Tests Test 07/29/17 21:30 07/29/17 22:30 07/29/17 23:15 07/29/17 23:30 White Blood Count 10.5 x10^3/uL (4.0-11.0) Red Blood Count 4.33 x10^6/uL (3.50-5.40) Hemoglobin 12.7 g/dL (12.0-15.5) Hematocrit 38.4 % (36.0-47.0) Mean Corpuscular Volume 89 fL (79-100) Mean Corpuscular Hemoglobin 29 pg (25-35) Mean Corpuscular Hemoglobin Concent 33 g/dL (31-37) Red Cell Distribution Width 14.2 % (11.5-14.5) Platelet Count 221 x10^3/uL (140-400) Neutrophils (%) (Auto) 64 % (31-73) Lymphocytes (%) (Auto) 26 % (24-48) Monocytes (%) (Auto) 9 % (0-9) Eosinophils (%) (Auto) 1 % (0-3) Basophils (%) (Auto) 1 % (0-3) Neutrophils # (Auto) 6.7 x10^3uL (1.8-7.7) Lymphocytes # (Auto) 2.7 x10^3/uL (1.0-4.8) Monocytes # (Auto) 0.9 x10^3/uL (0.0-1.1) Eosinophils # (Auto) 0.1 x10^3/uL (0.0-0.7) Basophils # (Auto) 0.1 x10^3/uL (0.0-0.2) Sodium Level 138 mmol/L (136-145) Potassium Level 3.5 mmol/L (3.5-5.1) Chloride Level 99 mmol/L (98-107) Carbon Dioxide Level 28 mmol/L (21-32) Anion Gap 11 (6-14) Blood Urea Nitrogen 19 mg/dL (7-20) Creatinine 1.6 mg/dL (0.6-1.0) Estimated GFR (Cockcroft-Gault) 32.8 BUN/Creatinine Ratio 12 (6-20) Glucose Level 117 mg/dL (70-99) Calcium Level 9.0 mg/dL (8.5-10.1) Total Bilirubin 0.4 mg/dL (0.2-1.0) Aspartate Amino Transf (AST/SGOT) 20 U/L (15-37) Alanine Aminotransferase (ALT/SGPT) 19 U/L (14-59) Alkaline Phosphatase 130 U/L (46-116) Troponin I Quantitative 0.017 ng/mL (0.000-0.055) Total Protein 7.6 g/dL (6.4-8.2) Albumin 3.6 g/dL (3.4-5.0) Albumin/Globulin Ratio 0.9 (1.0-1.7) Urine Collection Type Unknown Urine Color Yellow Urine Clarity Clear Urine pH 6.0 Urine Specific [place] <=1.005 Urine Protein Negative mg/dL (NEG-TRACE) Urine Glucose (UA) Negative mg/dL (NEG) Urine Ketones (Stick) Negative mg/dL (NEG) Urine Blood Negative (NEG) Urine Nitrite Negative (NEG) Urine Bilirubin Negative (NEG) Urine Urobilinogen Dipstick 1.0 mg/dL (0.2 mg/dL) Urine Leukocyte Esterase Trace (NEG) Urine RBC 0 /HPF (0-2) Urine WBC 1-4 /HPF (0-4) Urine Squamous Epithelial Cells Mod /LPF Urine Bacteria Few /HPF (0-FEW) Urine Mucus Slight /LPF Lactic Acid Level 1.1 mmol/L (0.4-2.0) Influenza Type A Antigen Negative (NEGATIVE) Influenza Type B Antigen Negative (NEGATIVE) Test 07/31/17 05:10 White Blood Count 12.0 x10^3/uL (4.0-11.0) Red Blood Count 4.17 x10^6/uL (3.50-5.40) Hemoglobin 12.2 g/dL (12.0-15.5) Hematocrit 37.3 % (36.0-47.0) Mean Corpuscular Volume 90 fL (79-100) Mean Corpuscular Hemoglobin 29 pg (25-35) Mean Corpuscular Hemoglobin Concent 33 g/dL (31-37) Red Cell Distribution Width 14.6 % (11.5-14.5) Platelet Count 219 x10^3/uL (140-400) Neutrophils (%) (Auto) 60 % (31-73) Lymphocytes (%) (Auto) 32 % (24-48) Monocytes (%) (Auto) 8 % (0-9) Eosinophils (%) (Auto) 1 % (0-3) Basophils (%) (Auto) 0 % (0-3) Neutrophils # (Auto) 7.2 x10^3uL (1.8-7.7) Lymphocytes # (Auto) 3.8 x10^3/uL (1.0-4.8) Monocytes # (Auto) 0.9 x10^3/uL (0.0-1.1) Eosinophils # (Auto) 0.1 x10^3/uL (0.0-0.7) Basophils # (Auto) 0.0 x10^3/uL (0.0-0.2) Sodium Level 141 mmol/L (136-145) Potassium Level 3.5 mmol/L (3.5-5.1) Chloride Level 104 mmol/L (98-107) Carbon Dioxide Level 33 mmol/L (21-32) Anion Gap 4 (6-14) Blood Urea Nitrogen 20 mg/dL (7-20) Creatinine 1.3 mg/dL (0.6-1.0) Estimated GFR (Cockcroft-Gault) 41.6 Glucose Level 93 mg/dL (70-99) Calcium Level 8.3 mg/dL (8.5-10.1) Laboratory Tests Test 07/31/17 05:10 White Blood Count 12.0 x10^3/uL (4.0-11.0) Red Blood Count 4.17 x10^6/uL (3.50-5.40) Hemoglobin 12.2 g/dL (12.0-15.5) Hematocrit 37.3 % (36.0-47.0) Mean Corpuscular Volume 90 fL (79-100) Mean Corpuscular Hemoglobin 29 pg (25-35) Mean Corpuscular Hemoglobin Concent 33 g/dL (31-37) Red Cell Distribution Width 14.6 % (11.5-14.5) Platelet Count 219 x10^3/uL (140-400) Neutrophils (%) (Auto) 60 % (31-73) Lymphocytes (%) (Auto) 32 % (24-48) Monocytes (%) (Auto) 8 % (0-9) Eosinophils (%) (Auto) 1 % (0-3) Basophils (%) (Auto) 0 % (0-3) Neutrophils # (Auto) 7.2 x10^3uL (1.8-7.7) Lymphocytes # (Auto) 3.8 x10^3/uL (1.0-4.8) Monocytes # (Auto) 0.9 x10^3/uL (0.0-1.1) Eosinophils # (Auto) 0.1 x10^3/uL (0.0-0.7) Basophils # (Auto) 0.0 x10^3/uL (0.0-0.2) Sodium Level 141 mmol/L (136-145) Potassium Level 3.5 mmol/L (3.5-5.1) Chloride Level 104 mmol/L (98-107) Carbon Dioxide Level 33 mmol/L (21-32) Anion Gap 4 (6-14) Blood Urea Nitrogen 20 mg/dL (7-20) Creatinine 1.3 mg/dL (0.6-1.0) Estimated GFR (Cockcroft-Gault) 41.6 Glucose Level 93 mg/dL (70-99) Calcium Level 8.3 mg/dL (8.5-10.1) Medications Active Scripts Medications Dose Route/Sig Max Daily Dose Days Date Category Hydralazine Hcl 50 Mg Tablet 1 Tab PO BID 03/07/17 Rx NITROGLYCERIN SubLingual (Nitroglycerin) 0.4 Mg Tab.subl 0.4 Mg SL PRN Q5MIN PRN 03/04/17 Reported Norvasc (Amlodipine Besylate) 10 Mg Tablet 10 Mg PO DAILY 03/04/17 Reported Simvastatin 20 Mg Tablet 1 Tab PO QHS 03/04/17 Reported Fioricet 50-300-40 Mg Capsule (Butalb/Acetaminophen/Caffeine) 1 Each Capsule 1 Each PO DAILY PRN 03/04/17 Reported Furosemide 40 Mg Tablet 1 Tab PO DAILY 03/04/17 Reported Losartan Potassium 100 Mg Tablet 100 Mg PO DAILY 03/04/17 Reported Carvedilol 25 Mg Tablet 1 Tab PO DAILY 03/04/17 Reported Impression . IMPRESSION: 1. Progressive dyspnea secondary to acute nonspecific bronchitis. 2. Wheezing secondary to acute bronchitis. 3. Cardiomegaly. 4. Hypertensive urgency. 5. Obesity. 6. Chronic diastolic heart failure. Plan . OK TO D/C HOME FOLLOW UP IN OFFICE IN 4 WEEKS 1. Recommend steroids and Levaquin. 3. Nebulized treatments. 4. Control blood pressure. 5. Avoid caffeinated beverages 6. Tessalon Perles if cough persists. TIARRA BYERS MD Jul 31, 2017 11:18
[2017-07-31] MEDS ORDERED: GUAI120L35 PO ×2 (13:19→13:20)
--- NOTE | 2017-07-31 13:23 | PDOC3 ---
Discharge Summary Visit Information Date of Admission: Jul 30, 2017 Date of Discharge: Jul 31, 2017 Admitting Diagnosis: cough, dsypnea Final Diagnosis viral upper respiratory Hyihl-rw-fybrstm systolic and diastolic heart failure [id number] renal insufficiency, vasomotor obesity, BMI 36 weakness, acquired Problems Medical Problems: (1) Viral syndrome Status: Acute Brief Hospital Course Allergies Allergies Coded Allergies Type Severity Reaction Last Updated Verified lisinopril Allergy Mild 08/23/16 Yes Vital Signs Vital Signs Date Time Temp Pulse Resp B/P (MAP) Pulse Ox O2 Delivery O2 Flow Rate FiO2 07/31/17 12:09 96 Room Air 07/31/17 11:00 97.7 79 16 119/69 (86) 2.0 97.7 Lab Results Laboratory Tests Test 07/29/17 21:30 07/29/17 22:30 07/29/17 23:15 07/29/17 23:30 White Blood Count 10.5 x10^3/uL (4.0-11.0) Red Blood Count 4.33 x10^6/uL (3.50-5.40) Hemoglobin 12.7 g/dL (12.0-15.5) Hematocrit 38.4 % (36.0-47.0) Mean Corpuscular Volume 89 fL (79-100) Mean Corpuscular Hemoglobin 29 pg (25-35) Mean Corpuscular Hemoglobin Concent 33 g/dL (31-37) Red Cell Distribution Width 14.2 % (11.5-14.5) Platelet Count 221 x10^3/uL (140-400) Neutrophils (%) (Auto) 64 % (31-73) Lymphocytes (%) (Auto) 26 % (24-48) Monocytes (%) (Auto) 9 % (0-9) Eosinophils (%) (Auto) 1 % (0-3) Basophils (%) (Auto) 1 % (0-3) Neutrophils # (Auto) 6.7 x10^3uL (1.8-7.7) Lymphocytes # (Auto) 2.7 x10^3/uL (1.0-4.8) Monocytes # (Auto) 0.9 x10^3/uL (0.0-1.1) Eosinophils # (Auto) 0.1 x10^3/uL (0.0-0.7) Basophils # (Auto) 0.1 x10^3/uL (0.0-0.2) Sodium Level 138 mmol/L (136-145) Potassium Level 3.5 mmol/L (3.5-5.1) Chloride Level 99 mmol/L (98-107) Carbon Dioxide Level 28 mmol/L (21-32) Anion Gap 11 (6-14) Blood Urea Nitrogen 19 mg/dL (7-20) Creatinine 1.6 mg/dL (0.6-1.0) Estimated GFR (Cockcroft-Gault) 32.8 BUN/Creatinine Ratio 12 (6-20) Glucose Level 117 mg/dL (70-99) Calcium Level 9.0 mg/dL (8.5-10.1) Total Bilirubin 0.4 mg/dL (0.2-1.0) Aspartate Amino Transf (AST/SGOT) 20 U/L (15-37) Alanine Aminotransferase (ALT/SGPT) 19 U/L (14-59) Alkaline Phosphatase 130 U/L (46-116) Troponin I Quantitative 0.017 ng/mL (0.000-0.055) Total Protein 7.6 g/dL (6.4-8.2) Albumin 3.6 g/dL (3.4-5.0) Albumin/Globulin Ratio 0.9 (1.0-1.7) Urine Collection Type Unknown Urine Color Yellow Urine Clarity Clear Urine pH 6.0 Urine Specific [place] <=1.005 Urine Protein Negative mg/dL (NEG-TRACE) Urine Glucose (UA) Negative mg/dL (NEG) Urine Ketones (Stick) Negative mg/dL (NEG) Urine Blood Negative (NEG) Urine Nitrite Negative (NEG) Urine Bilirubin Negative (NEG) Urine Urobilinogen Dipstick 1.0 mg/dL (0.2 mg/dL) Urine Leukocyte Esterase Trace (NEG) Urine RBC 0 /HPF (0-2) Urine WBC 1-4 /HPF (0-4) Urine Squamous Epithelial Cells Mod /LPF Urine Bacteria Few /HPF (0-FEW) Urine Mucus Slight /LPF Lactic Acid Level 1.1 mmol/L (0.4-2.0) Influenza Type A Antigen Negative (NEGATIVE) Influenza Type B Antigen Negative (NEGATIVE) Test 07/31/17 05:10 White Blood Count 12.0 x10^3/uL (4.0-11.0) Red Blood Count 4.17 x10^6/uL (3.50-5.40) Hemoglobin 12.2 g/dL (12.0-15.5) Hematocrit 37.3 % (36.0-47.0) Mean Corpuscular Volume 90 fL (79-100) Mean Corpuscular Hemoglobin 29 pg (25-35) Mean Corpuscular Hemoglobin Concent 33 g/dL (31-37) Red Cell Distribution Width 14.6 % (11.5-14.5) Platelet Count 219 x10^3/uL (140-400) Neutrophils (%) (Auto) 60 % (31-73) Lymphocytes (%) (Auto) 32 % (24-48) Monocytes (%) (Auto) 8 % (0-9) Eosinophils (%) (Auto) 1 % (0-3) Basophils (%) (Auto) 0 % (0-3) Neutrophils # (Auto) 7.2 x10^3uL (1.8-7.7) Lymphocytes # (Auto) 3.8 x10^3/uL (1.0-4.8) Monocytes # (Auto) 0.9 x10^3/uL (0.0-1.1) Eosinophils # (Auto) 0.1 x10^3/uL (0.0-0.7) Basophils # (Auto) 0.0 x10^3/uL (0.0-0.2) Sodium Level 141 mmol/L (136-145) Potassium Level 3.5 mmol/L (3.5-5.1) Chloride Level 104 mmol/L (98-107) Carbon Dioxide Level 33 mmol/L (21-32) Anion Gap 4 (6-14) Blood Urea Nitrogen 20 mg/dL (7-20) Creatinine 1.3 mg/dL (0.6-1.0) Estimated GFR (Cockcroft-Gault) 41.6 Glucose Level 93 mg/dL (70-99) Calcium Level 8.3 mg/dL (8.5-10.1) Laboratory Tests Test 07/31/17 05:10 White Blood Count 12.0 x10^3/uL (4.0-11.0) Red Blood Count 4.17 x10^6/uL (3.50-5.40) Hemoglobin 12.2 g/dL (12.0-15.5) Hematocrit 37.3 % (36.0-47.0) Mean Corpuscular Volume 90 fL (79-100) Mean Corpuscular Hemoglobin 29 pg (25-35) Mean Corpuscular Hemoglobin Concent 33 g/dL (31-37) Red Cell Distribution Width 14.6 % (11.5-14.5) Platelet Count 219 x10^3/uL (140-400) Neutrophils (%) (Auto) 60 % (31-73) Lymphocytes (%) (Auto) 32 % (24-48) Monocytes (%) (Auto) 8 % (0-9) Eosinophils (%) (Auto) 1 % (0-3) Basophils (%) (Auto) 0 % (0-3) Neutrophils # (Auto) 7.2 x10^3uL (1.8-7.7) Lymphocytes # (Auto) 3.8 x10^3/uL (1.0-4.8) Monocytes # (Auto) 0.9 x10^3/uL (0.0-1.1) Eosinophils # (Auto) 0.1 x10^3/uL (0.0-0.7) Basophils # (Auto) 0.0 x10^3/uL (0.0-0.2) Sodium Level 141 mmol/L (136-145) Potassium Level 3.5 mmol/L (3.5-5.1) Chloride Level 104 mmol/L (98-107) Carbon Dioxide Level 33 mmol/L (21-32) Anion Gap 4 (6-14) Blood Urea Nitrogen 20 mg/dL (7-20) Creatinine 1.3 mg/dL (0.6-1.0) Estimated GFR (Cockcroft-Gault) 41.6 Glucose Level 93 mg/dL (70-99) Calcium Level 8.3 mg/dL (8.5-10.1) Brief Hospital Course Ms. Chand is a 62 old admit for cough and dyspnea, thought to be CHF in the ER, CV consult eval thought to be stable PUlm consult, symptomatic care DC with cough meds supportive care f/u Dr. Amanda Discharge Information Condition at Discharge: Improved Follow Up: Weeks Disposition/Orders: D/C to Home Scheduled Amlodipine Besylate (Norvasc), 10 MG PO DAILY, (Reported) Carvedilol (Carvedilol), 1 TAB PO DAILY, (Reported) Furosemide (Furosemide), 1 TAB PO DAILY, (Reported) Hydralazine Hcl (Hydralazine Hcl), 1 TAB PO BID Losartan Potassium (Losartan Potassium), 100 MG PO DAILY, (Reported) Simvastatin (Simvastatin), 1 TAB PO QHS, (Reported) Scheduled PRN Butalb/Acetaminophen/Caffeine (Fioricet 50-300-40 Mg Capsule), 1 EACH PO DAILY PRN for MIGRAINE HEADACHE, (Reported) Guaifenesin/Codeine Phosphate (Codeine-Guaifen 10-100 mg/5 ml), 5 ML PO Q6HRS PRN for COUGH Nitroglycerin (NITROGLYCERIN SubLingual), 0.4 MG SL PRN Q5MIN PRN for CHEST PAIN , (Reported) Patient Instructions Patient Instructions > 30 min face to face KAROLINA [place] IRA W MD Jul 31, 2017 13:23
[2017-07-31] MEDS ORDERED: PROAIR HFA8.5 GM INH (13:27)
== END 2017-07-31 18:45 | disposition home or self-care (01) | DRG 865 ==
LOC: ER 21:10 → 5 NORTH 23:02
PROVIDERS: ADMIT Internal Medicine; ATTEND Internal Medicine
DX: B34.9 Viral infection, unspecified (principal); I50.43 Acute on chronic combined systolic (congestive) and diastolic (congestive) heart failure; I13.0 Hypertensive heart and chronic kidney disease with heart failure and stage 1 through stage 4 chronic kidney disease, or unspecified chronic kidney disease; N39.0 Urinary tract infection, site not specified; E66.01 Morbid (severe) obesity due to excess calories; J20.9 Acute bronchitis, unspecified; E78.5 Hyperlipidemia, unspecified; I16.0 Hypertensive urgency; N18.9 Chronic kidney disease, unspecified; Z68.36 Body mass index [BMI] 36.0-36.9, adult; Z82.49 Family history of ischemic heart disease and other diseases of the circulatory system; Z87.891 Personal history of nicotine dependence; Z87.01 Personal history of pneumonia (recurrent); Z88.8 Allergy status to other drugs, medicaments and biological substances; Z90.49 Acquired absence of other specified parts of digestive tract
CPT/HCPCS: 36415; 71010; 80048; 80053; 81001; 83605; 84484; 85025; 87040; 87086; 87804; 90686; 90732; 93005; 94250; 94640; 94760; 96374; J1940; J1956; J2270; J2930; J7512; J7613; J7620; 99285-25